=== PATIENT | female | born 1930 | race Caucasian/White ===

== ENCOUNTER 2019-08-13 19:07 | Inpatient (IN) | payer MEDICARE, OTHER ==
[~2019-08-13] VITALS: Ht 167.6 cm; Wt 75.5 kg
--- OUTSIDE RECORDS SUMMARY | ~2019-08-13 | XMS | Clinical Summary ---
Demographics + + + | Address | [address] | | | [place] [address] | + + + | Home Phone | | + + + | Preferred Language | Unknown | + + + | Marital Status | | + + + | Rastafarian Affiliation | Unknown | + + + | Race | Unknown | + + + | Ethnic Group | Unknown | + + + Author + + + | Author | [facility] (Historical as of | | | 05-31-19) | + + + | Organization | [facility] (Historical as of | | | 05-31-19) | + + + | Address | Unknown | + + + | Phone | Unavailable | + + + Support + + +---------+ + | Name | Relationship | Address | Phone | + + +---------+ + | Page Raymond | ECON | Unknown | | + + +---------+ + Care Team Providers + +------+ + | Care Natural Gas Engineer Name | Role | Phone | + +------+ + | Ollie Catalan MD | PP | | + +------+ + Allergies + + + + + + | Active Allergy | Reactions | Severity | Noted | Comments | | | | | Date | | + + + + + + | Rosuvastatin | Shortness of Breath | High | 05/08/20 | Think its the | | | | | 14 | reason for the afib | + + + + + + | Promethazine | Other (See Comments) | Medium | 05/08/20 | Stroke like | | | | | 14 | behavior | + + + + + + | Simvastatin | Shortness of Breath | High | 05/08/20 | | | | | | 14 | | + + + + + + Current Medications + + +-------+---------+------+------+-------+ | Prescription | Sig. | Disp. | Refills | Star | End | Statu | | | | | | t | Date | s | | | | | | Date | | | + + +-------+---------+------+------+-------+ | spironolactone | Take 25 mg by mouth | | | | | Activ | | (ALDACTONE) 25 MG | 2 (two) times daily. | | | | | e | | tablet | | | | | | | + + +-------+---------+------+------+-------+ | diltiazem (DILACOR | Take 240 mg by mouth | | | | | Activ | | XR) 240 MG 24 hr | daily. | | | | | e | | capsule | | | | | | | + + +-------+---------+------+------+-------+ | potassium chloride | Take 20 mEq by mouth | | | | | Activ | | SA (ALBERTO BANKS) | daily. | | | | | e | | 20 MEQ tablet | | | | | | | + + +-------+---------+------+------+-------+ | levothyroxine | Take 100 mcg by | | | | | Activ | | (SYNTHROID) 100 MCG | mouth every morning | | | | | e | | tablet | before breakfast. | | | | | | | | Except none on | | | | | | | | Sunday | | | | | | + + +-------+---------+------+------+-------+ | furosemide (LASIX) | Take 40 mg by mouth | | | | | Activ | | 20 MG tablet | 2 (two) times daily. | | | | | e | + + +-------+---------+------+------+-------+ | atenolol | Take 50 mg by mouth | | | | | Activ | | (TENORMIN) 50 MG | daily. | | | | | e | | tablet | | | | | | | + + +-------+---------+------+------+-------+ | rivaroxaban | Take 20 mg by mouth | | | | | Activ | | (XARELTO) 20 MG | daily with dinner. | | | | | e | | tablet | | | | | | | + + +-------+---------+------+------+-------+ Active Problems + + + | Problem | Noted Date | + + + | Atrial fibrillation (HCC) | | + + + | Hypertension | | + + + | Hyperlipidemia | | + + + Family History + + +------+ + | Medical History | Relation | Name | Comments | + + +------+ + | CVA | Mother | | | + + +------+ + | Heart attack | Paternal | | | | | Grandfath | | | | | er | | | + + +------+ + | Uterine cancer | Sister | | | + + +------+ + + +------+ + + | Relation | Name | Status | Comments | + +------+ + + | Brother | | Alive | | + +------+ + + | Father | | | | | | | (Age | | | | | 60) | | + +------+ + + | Mother | | | | | | | (Age | | | | | 86) | | + +------+ + + | Paternal Grandfather | | | | | | | (Age | | | | | 79) | | + +------+ + + | Sister | | | | | | | (Age | | | | | 80) | | + +------+ + + | Sister | | Alive | | + +------+ + + | Sister | | Alive | | + +------+ + + | Sister | | | | + +------+ + + Social History + +-------+ +--------+------+ | Tobacco Use | Types | Packs/Day | Years | Date | | | | | Used | | + +-------+ +--------+------+ | Never Smoker | | | | | + +-------+ +--------+------+ + +---+---+---+ | Smokeless Tobacco: | | | | | Never Used | | | | + +---+---+---+ + + +---------+ + | Alcohol Use | Drinks/We | oz/Week | Comments | | | ek | | | + + +---------+ + | No | | | | + + +---------+ + + + + | Sex Assigned at | Date Recorded | | | | + + + | Not on file | | + + + Last Filed Vital Signs + + + + | Vital Sign | Reading | Time Taken | + + + + | Blood Pressure | 100/58 | 05/08/2014 10:34 AM PDT | + + + + | Pulse | 62 | 05/08/2014 10:31 AM PDT | + + + + | Temperature | - | - | + + + + | Respiratory Rate | 16 | 05/08/2014 10:31 AM PDT | + + + + | Oxygen Saturation | 96% | 05/08/2014 10:31 AM PDT | + + + + | Inhaled Oxygen | - | - | | Concentration | | | + + + + | Weight | 73 kg (161 lb) | 05/08/2014 10:31 AM PDT | + + + + | Height | 170.2 cm (5' 7") | 05/08/2014 10:31 AM PDT | + + + + | Body Mass Index | 25.22 | 05/08/2014 10:31 AM PDT | + + + + Plan of Treatment + + + + + | Health Maintenance | Due Date | Last Done | Comments | + + + + + | Vaccine: | | | | | Dtap/Tdap/Td (1 - | 9 | | | | Tdap) | | | | + + + + + | Vaccine: Zoster (1 | | | | | of 2) | 0 | | | + + + + + | DEXA SCAN SCREENING | | | | | | 5 | | | + + + + + | Vaccine: | | | | | Pneumococcal 65+ | 5 | | | | Low/Medium Risk (1 | | | | | of 2 - PCV13) | | | | + + + + + | Vaccine: Influenza | | | | | (#1) | 9 | | | + + + + + Results Not on filefrom Last 3 Months Insurance + +--------+ +------+-------+ + | Payer | Benefi | Subscriber | Type | Phone | Address | | | t Plan | ID | | | | | | / | | | | | | | Group | | | | | + +--------+ +------+-------+ + | MEDICARE | MEDICA | [id number] | | | [address] | | | RE | | | | [place] [phone] | | | IP-OP | | | | | + +--------+ +------+-------+ + | COMMERCIAL OTHER | COMMER | [id number] | | | | | | CIAL | | | | | | | GENERI | | | | | | | C PLAN | | | | | + +--------+ +------+-------+ + + +--------+ +--------+ + + | Guarantor Name | Accoun | Relation to | Date | Phone | Billing Address | | | t Type | Patient | of | | | | | | | | | | + +--------+ +--------+ + + | CATHY CAMARA | Person | Self | [birth year] Home: | [id number] | | | al/Fam | | 1930 | [phone] | [address] | | | [address] | | | [phone] | [place] [address] | + +--------+ +--------+ + +
--- OUTSIDE RECORDS SUMMARY | ~2019-08-13 | XMS | Clinical Summary ---
Demographics + + + | Address | [address] | | | [place] [address] | + + + | Home Phone | | + + + | Preferred Language | Unknown | + + + | Marital Status | | + + + | Anabaptist Affiliation | 1041 | + + + | Race | Unknown | + + + | Ethnic Group | Unknown | + + + Author + + + | Author | [facility] | | | and [place] | + + + | Organization | [facility] | | | and [place] | + + + | Address | Unknown | + + + | Phone | Unavailable | + + + Support + + + + + | Name | Relationship | Address | Phone | + + + + + | SegundoBrianna Yaritza | ECON | [address] | | | | | [place] | | | | | [place] | | | | | [phone] | | + + + + + | Prabha Escobedo | ECON | Unknown | | | | | Unknown | | + + + + + Care Team Providers + +------+ + | Care Clay Maker Name | Role | Phone | + +------+ + | Toney Catalan MD | PCP | | + +------+ + Allergies Not on File Medications Not on file Active Problems Not on file Family History + + +------+ + | Medical History | Relation | Name | Comments | + + +------+ + | Other (see comment) | Mother | | CVA | + + +------+ + | Heart [...] + | Mother | | | | + +------+ + + | Paternal Grandfather | | | | | | | (Age | | | | | 79) | | + +------+ + + | Paternal Grandfather | | | | + +------+ + + | [...] | | | + +-------+ +--------+------+ + + + | Sex Assigned at | Date Recorded | | | | + + + | Not on file | | + + + + + + + | Job Start Date | Occupation | Industry | + + + + | Not on file | Not on file | Not on file | + + + + + + + + | Travel History | Travel Start | Travel End | + + + + + + | No recent travel history available. | + + Last Filed Vital Signs Not on file Plan of Treatment + + + + [...] filefrom Last 3 Months Insurance + +--------+ +--------+ +---------+--------+ | Payer | Benefi | Subscriber | Effect | Phone | Address | Type | | | t Plan | ID | anna marie | | | | | | / | | Dates | | | | | | Group | | | | | | + +--------+ +--------+ +---------+--------+ | MEDICARE | MEDICA | [id number] | | [phone] | | Medica | | | RE | | [phone]-Pr | 5 | | re | | | PART A | | esent | | | | | | AND B | | | | | | + +--------+ +--------+ +---------+--------+ | CIGNA | CIGNA | [id number] | | [phone] | | Indemn | | | MDCR | | 012-Pr | 1 | | ity | | | SUPPLE | | esent | | | | | | MENT | | | | | | | | SOLUTI | | | | | | | | ONS | | | | | | + +--------+ +--------+ +---------+--------+ + +--------+ +--------+ + + | Guarantor Name | Accoun | Relation to | Date | Phone | Billing Address | | | t Type | Patient | of | | | | | | | | | | + +--------+ +--------+ + + | Doris Camara | Person | Self | [birth year] | [address] | | | al/Fam | | 1930 | [phone] | [address] | | | [place] | | | [address] (Home) | [place] [address] | + +--------+ +--------+ + +"
--- OUTSIDE RECORDS SUMMARY | ~2019-08-13 | XMS | Clinical Summary ---
Demographics + + + | Address | [address] | | | [place] [address] | + + + | Home Phone | | + + + | Preferred Language | Unknown | + + + | Marital Status | | + + + | Anabaptism Affiliation | Unknown | + + + | Race | Unknown | + + + | Ethnic Group | Unknown | + + + Author + + + | Author | [facility] (Historical as of | | | 05-31-19) | + + + | Organization | [facility] (Historical as of | | | 05-31-19) [...] Team Providers + +------+ + | Care Briquette Operator Name | Role | Phone | + [...] +------+-------+ + | MEDICARE | MEDICA | [id number] | | | [address] | | | RE | | | | [place] [id number] | | | IP-OP | | | | | + +--------+ +------+-------+ + | COMMERCIAL OTHER | COMMER | [id number] | | | | | | CIAL [...] | Self | [birth year] | Home: | [address] | | | al/Fam | | 1930 | [phone] | [address] | | | [address] | | | [phone] | [place] [address] | + +--------+ +--------+ + +
--- OUTSIDE RECORDS SUMMARY | ~2019-08-13 | XMS | Clinical Summary ---
Demographics + + + | Address | [address] | | | [place] [address] | + + + | Home Phone | | + + + | Preferred Language | Unknown | + + + | Marital Status | | + + + | Baptist Affiliation | 1041 | + + + | Race | Unknown | + + + | Ethnic Group | Unknown | + + + Author + + + | Author | [facility] | | | and [place] | + + + | Organization | [facility] | | | and [place] | + + + | Address | Unknown | + + + | Phone | Unavailable | + + + Support + + + + + | Name | Relationship | Address | Phone | + + + + + | SegundoBrianna Yaritza | ECON | [address] | | | | | [place] | | | | | [place] | | | | | [address] | | + + + + + | Prabha Escobedo | ECON | Unknown | | | | | Unknown | | + + + + + Care Team Providers + +------+ + | Care Fuel Technician Name | Role | Phone | + [...] +--------+ +---------+--------+ | MEDICARE | MEDICA | [id number] | | [phone] | | Medica | | | RE | | 995-Pr | 5 | | re | | | PART A | | esent | | | | | | AND B | | | | | | + +--------+ +--------+ +---------+--------+ | CIGNA | CIGNA | [id number] | | [phone] | | Indemn | [...] Person | Self | [birth year] | | [address] | | | al/Fam | | 1930 | [phone] | [address] | | | [place] | | | [address] (Home) | [place] [address] | + +--------+ +--------+ + +"
--- OUTSIDE RECORDS SUMMARY | ~2019-08-13 | XMS | Clinical Summary ---
Demographics + + + | Address | [address] | | | [place] [address] | + + + | Home Phone | | + + + | Preferred Language | Unknown | + + + | Marital Status | | + + + | Mandaeism Affiliation | Unknown | + + + | Race | Unknown | + + + | Ethnic Group | Unknown | + + + Author + + + | Author | [facility] (Historical as of | | | 05-31-19) | + + + | Organization | [facility] (Historical as of | | | 05-31-19) [...] Team Providers + +------+ + | Care Machine Welder Name | Role | Phone | + [...] +------+-------+ + | MEDICARE | MEDICA | [id number] | | | [address] | | | RE | | | | [place] [id number] | | | IP-OP | | | | | + +--------+ +------+-------+ + | COMMERCIAL OTHER | COMMER | [id number] | | | | | | CIAL [...] | Self | [birth year] | Home: | [address] | | | al/Fam | | 1930 | [phone] | [address] | | | [address] | | | [phone] | [place] [address] | + +--------+ +--------+ + +
--- OUTSIDE RECORDS SUMMARY | ~2019-08-13 | XMS | Clinical Summary ---
Demographics + + + | Address | [address] | | | [place] [address] | + + + | Home Phone | | + + + | Preferred Language | Unknown | + + + | Marital Status | | + + + | Druze Affiliation | 1041 | + + + | Race | Unknown | + + + | Ethnic Group | Unknown | + + + Author + + + | Author | [facility] | | | and [place] | + + + | Organization | [facility] | | | and [place] | + + + | Address | Unknown | + + + | Phone | Unavailable | + + + Support + + + + + | Name | Relationship | Address | Phone | + + + + + | SegundoBrianna aYritza | ECON | [address] | | | | | [place] | | | | | [place] | | | | | [address] | | + + + + + | Prabha Escobedo | ECON | Unknown | | | | | Unknown | | + + + + + Care Team Providers + +------+ + | Care Escort Car Driver Name | Role | Phone | + [...] +--------+ +---------+--------+ | MEDICARE | MEDICA | [id number] | | [phone] | | Medica | | | RE | | [phone]-Pr | 5 | | re | | | PART A | | esent | | | | | | AND B | | | | | | + +--------+ +--------+ +---------+--------+ | CIGNA | CIGNA | [id number] | | [phone] | | Indemn | [...] Person | Self | [birth year] | | [address] | | | al/Fam | | 1930 | [phone] | [address] | | | [place] | | | [address] (Home) | [place] [address] | + +--------+ +--------+ + +"
[~2019-08-13 19:07] MED LIST: ALDACTONE25 MG PO; ASPIRIN EC81 MG PO; ATENOLOL50 MG PO; CARDIZEM CD240 MG PO; CENTRUM SILVER1 EAC1 PO; CIPRO500 MG PO; CRESTOR10 MG PO; ESTER-C 1,0001 EACH PO; FUROSEMIDE20 MG PO; HYDREA500 MG PO; HYDROXYUREA500 MG PO; JAKAFI10 MG PO; LEVOTHYROXINE100 MCG PO; OMEGA 3 1,0001 EACH PO; OS-CAL 500+D C1 EAC1 PO; VITAMIN B-121500 MCG PO; VITAMIN D400 UNI1 PO; XARELTO15 MG PO
[2019-08-13] MEDS ORDERED: ALDACTONE25 MG PO (19:12)
--- NOTE | 2019-08-13 22:45 | NUR ---
PATIENT ADMISSION COMPLETED. PATIENT ORIENTED TO ROOM, FLOOR AND CALL LIGHT. IV INFUSING PER ORDER. PATIENT DENIES ANY COMMENTS, QUESTIONS, OR CONCERNS. NO NEEDS NOTED. DAUGHTER IS PRESENT IN THE ROOM. PATIENTS DAUGHTER DENIES ANY QUESTIONS. CHRISTINE KHANNA RN PRESENT IN THE ROOM.
--- NOTE | 2019-08-13 23:22 | NUR ---
PATIENT TUCKED IN AND ADMITTED, LR BOLUS IS RUNNING, IV SITE LOOKS GOOD, LUNGS ARE REALLY JUNKY, BUT PATIENT IS NOT SHORT OF BREATH. PATIENT RESTING QUIETLY AT THIS TIME, EYES CLOSED AND CALL LIGHT IN REACH.
--- NOTE | 2019-08-14 01:14 | NUR ---
PATIENT RESTING IN HIGH FOWLERS POSITION, EYES CLOSED, RESPIRATIONS REGULAR AND EVEN, CALL LIGHT IN REACH.
--- NOTE | 2019-08-14 01:40 | NUR ---
PATIENT HAS BEEN RESTING QUIETLY IN NO DISTRESS, DENIES SOB, VITALS ARE WITHIN GUIDELINES. PATIENT TRYING TO GO BACK TO SLEEP AFTER VS AND ASSESSMENT. LUNG SOUNDS ARE COARSE THROUGHOUT. CALL LIGHT IN REACH.
--- NOTE | 2019-08-14 03:36 | NUR ---
PATIENT INCONTINENT IN BED. JANINE SMITH HELPING PATIENT. PATIENT HAS ATTENDS ON NOW AND FINISHED TOILETING IN THE BATHROOM AND BACK TO BED AFTER IT WAS CHANGED. CALL LIGHT IN REACH.
--- NOTE | 2019-08-14 05:46 | NUR ---
PATIENT HAS RESTED MOST OF THE NIGHT, SATS IN THE LOW 90'S ON RA, HAS NO C/O SOB, BUT LUNGS HAVE REMAINED VERY COARSE THROUGHOUT. PATIENT ALERT AND ORIENTED AND VS HAVE BEEN STABLE. PATIENT SAYS SHE IS FEELING A LITTLE BETTER. PATIENT HAD ONE LARGE INCONTINENT EPISODE AND BED CHANGE WAS NEEDED AND PATIENT WALKED INTO THE BATHROOM TO FINISH URINATING WITH 1PA AND FWW. IV INFUSING AT 75MLS AN HOUR. PATIENT TOLERATED ANTIBIOTICS WELL AND IS TAKING PO FLUIDS WELL. PATIENT GETTING SOME MORE SLEEP. CALL LIGHT IS IN REACH.
--- NOTE | 2019-08-14 07:20 | NUR ---
PATIENT SLEEPING IN BE ON RA. REPORT RECEIVED. ORDERS ACKNOWLEDGED. D5LR RUNNING AT 75 MLS/HR.
--- NOTE | 2019-08-14 08:31 | NUR ---
DAUGHTER TANISHA CALLED FOR UPDATE ON PT NIGHT. GAVE INFORMATION ON HOW PT NIGHT WAS. DAUGHTER PLANS TO BE HERE IN HOUR TO VISIT.
--- NOTE | 2019-08-14 09:30 | NUR ---
PATIENT AMBULATED TO TOILET WITH 1 PA AND FWW, VOIDING QS. AMBULATED BACK TO CHAIR, D5LR RUNNING AT 75 MLS/HR. RT IN ROOM PROVIDING NEB TX. IV ABX HUNG AT 200 MLS/HR. AM MEDICATIONS GIVEN, TOLERATED WELL. BREAKFAST DELIVERED. ASSESSMENT COMPLETE, COARSE LUNG SOUNDS THROUGHOUT ALL LOBES. NONPRODUCTIVE COUGH. NO FURTHER NEEDS AT THIS TIME, CALL LIGHT WITHIN REACH.
[2019-08-14] MEDS ORDERED: ATENOLOL25 MG PO (12:10)
[2019-08-14] MEDS ORDERED: CARTIA XT240 MG PO (12:11)
--- NOTE | 2019-08-14 12:46 | NUR ---
CT ARRIVED TO ROOM TO TAKE PATIENT TO IMAGING. PATIENT ONE PA ASSIST TO BEDSIDE COMMODE. VOIDED 300 MLS. PATIENT TRANSFERRED FROM COMMODE TO WHEELCHAIR WITH 2PA. PATIENT LEAVES UNIT TO IMAGING.
--- NOTE | 2019-08-14 13:30 | NUR ---
PATIENT RESTING IN BED. VITAL SIGNS AND I&O DONE. LOW SYSTOLIC BLOOD PRESSURE. RN NOTIFIED. PATIENT'S LUNCH ORDERED. CALL LIGHT WITHIN REACH. NO OTHER NEEDS AT THIS TIME
--- NOTE | 2019-08-14 13:50 | NUR ---
Spoke with Doris. She states she resides alone in a two storie house with children nearby. Use DME of walker, raised toilet seat with a commode over the toilet. House has steps with rails. Plans to return home with assistance from family when feeling better.
--- NOTE | 2019-08-14 14:15 | NUR ---
PATIENT SITTING IN CHAIR WATCHING TV WITH DAUGHTER IN ROOM. IV ABX HUNG AT 200 MLS/HR. 100% OF LUNCH EATEN, ACTIVE BOWEL TONES. BP OF 112/56 AND PULSE OF 93. DENIES FURTHER NEEDS, CALL LIGHT WITHIN REACH.
--- NOTE | 2019-08-14 15:20 | NUR ---
PATIENT SITTING UP IN CHAIR WATCHING TV. IV ABX FINISHED INFUSING, PATIENT IS SALINE LOCKED. PLAN FOR PATIENT TO SHOWER THIS AFTERNOON. NO FURTHER NEEDS AT THIS TIME, CALL LIGHT WITHIN REACH.
--- NOTE | 2019-08-14 16:10 | NUR ---
MED REC COMPLETE
--- NOTE | 2019-08-14 16:14 | NUR ---
PATIENT SITTING UP IN CHAIR. PATIENT GOES TO USE BATHROOM. PATIENT USES WALKER. PATIENT TAKES A SHOWER. ONE PERSON ASSISTING. PATIENT USING A CLEAN GOWN AND ADULT PULL UP. PATIENT BACKS TO BED. WARM BLANKET PROVIDED. CALL LIGHT WITHIN REACH. NO OTHER NEEDS AT THIS TIME
--- NOTE | 2019-08-14 17:00 | NUR ---
PATIENT LAYING IN BED WATCHING TV WITH FAMILY IN ROOM. PO XARALTO GIVEN, 2ND RN CHECK DONE. ASSESSMENT COMPLETE, VITAL SIGNS TAKEN. WATER REFRESHED. NO FURTHER NEEDS AT THIS TIME, CALL LIGHT WITHIN REACH.
--- NOTE | 2019-08-14 17:25 | NUR ---
PATIENT RESTING IN BED. FAMILY AND RN IN ROOM. VITAL SIGNS AND I&O DONE. LOW DYASTOLIC BLOOD PRESSURE. RN NOTIFIED. CALL LIGHT WITHIN REACH. NO OTHER NEEDS AT THIS TIME
--- NOTE | 2019-08-14 20:03 | NUR ---
PATIENT CURRENTLY VISITING WITH FAMILY AND HAS NO NEEDS, CALL LIGHT IN REACH.
--- NOTE | 2019-08-14 20:27 | NUR ---
PATIENT HAS NO PAIN BUT LOW GRADE FEVER AND GIVEN 500MG TYLENOL PO. PATIENT'S DAUGTER JUST WENT HOME. PATIENT ALERT AND ORIENTED. NO OTHER NEEDS. CALL LIGHT IN REACH.
--- NOTE | 2019-08-14 21:30 | NUR ---
PATIENT UP TO THE BATHROOM WITH CHARGE NURSE ELENI, 1PA WITH FWW AND THEN BACK TO BED. NO OTHER NEEDS AT THIS TIME. CALL LIGHT IN REACH.
--- NOTE | 2019-08-14 23:28 | NUR ---
PATIENT STILL AWAKE WATCHING TV. PATIENT'S FEVER IS GONE AND SHE IS HAVING NO PAIN. TEMP 97.8F NOW. PATIENT HAD NO OTHER NEEDS AT TIS TIME. CALL LIGHT IN REACH.
--- NOTE | 2019-08-15 01:11 | NUR ---
PATIENT RESTING ON HER RIGHT SIDE WITH EQUAL AND REGULAR RESPIRATIONS, EYES ARE CLOSED, AND PATIENT APPEARS IN NO DISTRESS. CALL LIGHT IN REACH.
--- NOTE | 2019-08-15 02:00 | NUR ---
PATIENT UP TO THE BATHROOM 1PA WITH FWW, VS STABLE, 2AM MEDS GIVEN, PATIENT BACK IN BED WITH WARM BLANKETS. VOIDED 150MLS. CALL LIGHTIN REACH. PATIENT STILL WITHOUT FEVER.
--- NOTE | 2019-08-15 03:13 | NUR ---
PATIENT RESTING QUIETLY ON HER LEFT SIDE, RESPIRATIONS REGULAR AND EVEN WITH HER EYES CLOSED. NO SOB NOTED. CALL LIGHT IN REACH.
--- NOTE | 2019-08-15 05:16 | NUR ---
PATIENT HAS SLEPT WELL MOST OF THE NIGHT. JUST GOT HER BACK TO BED AFTER HER 3RD TIME UP TO VOID SINCE 10PM. PATIENT REMAINS A LITTLE TACHY AROUND 110-114. ENCOURAGED PATIENT TO DRINK MORE WATER. CALL LIGHT IN REACH, PATIENT STILL DOING BETTER.
--- NOTE | 2019-08-15 07:30 | NUR ---
CALL LIGHT ANSWERED. PATIENT RESTING IN BED. PATIENT GOES TO USE BATHROOM. PATIENT USES WALKER. ONE PERSON ASSISTING. LINENS CHANGED. GOWN CHANGED. PATIENT USING A CLEAN ADULT PULL UP. PATIENT BACKS TO BED. CALL LIGHT WITHIN REACH. NO OTHER NEEDS AT THIS TIME
--- NOTE | 2019-08-15 07:35 | NUR ---
PATIENT SLEEPING IN BED, ROUSES TO VOICE. REPORT RECEIVED, ORDERS ACKNOWLEDGED. PATIENT STATES HER STOMACH IS "UNCOMFORTABLE." DISTENSION NOTED, ACTIVE BOWEL TONES. WILL UPDATE DR. AUGUSTIN AND CONTINUE TO MONITOR. NO FURTHER NEEDS AT THIS TIME, CALL LIGHT WITHIN REACH.
--- NOTE | 2019-08-15 08:04 | NUR ---
PATIENT AMBULATED TO CHAIR WITH 1PA. BREAKFAST DELIVERED. RT IN ROOM FOR NB TX. ASSESSMENT COMPLETE, VITALS TAKEN. NEW LINENS PROVIDED. AM MEDICATIONS GIVEN. PATIENT REPORTS NAUSEA, EMESIS BAG PROVIDED. PATIENT DENIES OFFER FOR ANTIEMETIC MEDICATION. WILL CONTINUE TO MONITOR. CALL LIGHT WITHIN REACH.
--- NOTE | 2019-08-15 09:10 | NUR ---
PATIENT SITTING IN CHAIR EATING BREAKFAST. REPORTS "UNCOMFORTABLE" FEELING IN ABDOMEN THAT IS SPREADING AROUND HER ABDOMEN. STATES IT FEELS "LIKE WHEN I'VE HAD A UTI IN THE PAST." VITAL SIGNS STABLE. WILL CONTINUE TO MONITOR. CALL LIGHT WITHIN REACH.
--- NOTE | 2019-08-15 09:22 | NUR ---
PATIENT SITTING UP IN CHAIR. VITAL SIGNS AND I&O DONE. CALL LIGHT WITHIN REACH. NO OTHER NEEDS AT THIS TIME
--- NOTE | 2019-08-15 10:45 | NUR ---
DR. AUGUSTIN NOTIFIED OF ABDOMINAL DISTENSION. PATIENT REPORTING FLANK PAIN AND NAUSEA. PATIENT ATE 20% OF BREAKFAST, REPORTS DECREASED APPETITE. VITALS TAKEN, PATIENT IS AFEBRILE.
--- NOTE | 2019-08-15 10:51 | NUR ---
PT CALLED REPORTING NAUSEA. 4MG ZOFRAN IV ADMINISTERED. EMISIS BAG PROVIDED. NO EMISIS. [facility] IN REACH.
--- NOTE | 2019-08-15 11:45 | NUR ---
PATIENT CONTINUES TO REPORT NAUSEA AND ABDOMINAL PAIN OF 4/10. PATIENTS ABDOMEN IS FIRM AND DISTENDED. DR. AUGUSTIN NOTIFIED, WILL ROUND ON PATIENT.
--- NOTE | 2019-08-15 13:54 | NUR ---
PATIENT RESTING IN BED. DAUGHTERS IN ROOM. VITAL SIGNS AND I&O DONE. PATIENT REFUSED TO ORDER LUNCH, SHE DOES NOT FEEL GOOD AND ASKS FOR MEDICINE FOR HEARTBURN. RN NOTIFIED. CALL LIGHT WITHIN REACH. NO OTHER NEEDS AT THIS TIME
--- NOTE | 2019-08-15 14:33 | NUR ---
XRAY IN ROOM WITH PATIENT. IV ABX HUNG AT 200 MLS/HR. FAMILY IN ROOM WITH PATIENT. PRN MEDICATION GIVEN FOR REPORTED HEARTBURN.
--- NOTE | 2019-08-15 15:51 | NUR ---
In to speak with pt and daughter, Brianna. Discussed when pt has improved plan to safely dc to home. Discussed PT/OT at home with HH. Daughter declines this as she and family feel pt has been failing and they need to make a decisions for her future. Daughter encouraged to speak with Dr. Quinteros.
--- NOTE | 2019-08-15 16:53 | NUR ---
PATIENT RESTING IN BED. DAUGHTER IN ROOM. VITAL SIGNS AND I&O DONE. CALL LIGHT WITHIN REACH. NO OTHER NEEDS AT THIS TIME
--- NOTE | 2019-08-15 17:32 | NUR ---
PATIENT SITTING UP IN BED WATCHING TV WITH FAMILY IN ROOM. LIDOCAINE ADMINISTERED INTO LEFT NOSTRIL. WILL RETURN IN THIRTY MINUTES TO INSERT NG TUBE.
--- NOTE | 2019-08-15 18:24 | NUR ---
NG TUBE PLACED PER PROTOCOL. 400 MLS OF DARK BROWN OUTPUT. XRAY IN ROOM VERIFYING PLACEMENT.
--- NOTE | 2019-08-15 18:31 | NUR ---
NG TUBE PLACED. NPO. [id number] AT 100 MLS/HR. ABDOMEN DISTENDED. STANDBY ASSIST, FWW. LIWS. TYLENOL FOR PAIN, REGLAN/ZOFRAN FOR NAUSEA.
--- NOTE | 2019-08-15 18:59 | NUR ---
TELE 9 PLACED PER ORDER.
--- NOTE | 2019-08-15 19:16 | NUR ---
NURSE ASKED ME TO CHECK ON PATIENT. PATIENT WAS INCONTIENT SO CHANGED HER ATTEND AND GOWN.
--- NOTE | 2019-08-15 21:08 | NUR ---
DR. LANG TO ROOM. DISCUSSED POC, CONTINUE BOWEL REST WITH NG IN PLACE. PATIENT AWAKE AND ALERT ANSWERING QUESTIONS APROPRIATLEY. DAUGHTER AT BEDSIDE. CONTINUE TO MONITOR AND SEE IF BOWEL BLOCKAGE RESOLVES ITSELF WITH REST.
--- NOTE | 2019-08-15 22:12 | NUR ---
PAUSES NOTED ON TELEMETRY. NOTIFIED AND UPDATED, NO NEW ORDERS. PHONE CALL TO MED-SURG NURSE CARLOS EDUARDO TO NOTIFY.
--- NOTE | 2019-08-16 00:36 | NUR ---
PATIENT RESTING, BREATHING EASY, EYES CLOSED. IV FLUIDS INFUSING. TELE AFIB WITH HR 77-89. APPEARS TO BE NO OTHER NEEDS AT THIS TIME.
--- NOTE | 2019-08-16 02:11 | NUR ---
VITALS AND I&OS DONE AND CHARTED. WITH THE HELP OF DEVANTE RAY WE CHANGED PT'S ATTEND INCONTINENT OF URINE. CHANGED HER GOWN WELL DUE TO A BIT OF URINE ON IT. BEDSIDE TABLE AND CALL LIGHT IN REACH.
--- NOTE | 2019-08-16 02:30 | NUR ---
PATIENT LOW GRADE TEMP 99.1, ENCOURAGED COUGH AND DEEP BREATHING. USING IS AND ACAPELLA, LARGE AMOUNT OF THICK SPUTUM EXPIRATED. CALL TO RT TO ASSESS FOR BREATHING TREATMENT, AUDIBLE EXPIRATORY WHEEZING.
--- NOTE | 2019-08-16 03:04 | NUR ---
PER PT REQUEST I CAME IN TO MOVE HER BEDSIDE TABLE. SHE NEEDS NOTHING MORE AT THIS TIME.
--- NOTE | 2019-08-16 03:40 | NUR ---
PATIENT RESTING WITH EYES CLOSED. RECIEVED BREATHING TREATMENT FROM RT, CONTINUES TO HAVE EXPIRATORY WHEEZES. NOTED PATIENT HAD COPIOUS AMONTS OF THICK EXUDATE AFTER BREATHING TREATMENT AND USING IS.
--- NOTE | 2019-08-16 06:16 | EKG ---
[facility] [address] [facility] [place] [address] Signed Atrial fibrillation Nonspecific ST and T wave abnormality Abnormal ECG When compared with ECG of 29-AUG-2016 08:47, Nonspecific T wave abnormality now evident in Lateral leads Confirmed by YOLANDA AUGUSTIN MD ([id number]) on 08/16/2019 6:15:44 AM Electronically Signed By: YOLANDA AUGUSTIN MD 08/16/19 0616 PATIENT NAME: CATHY BUTT Electrocardiogram DATE OF : [birth year] PHYSICIAN: YOLANDA AUGUSTIN MD REPORT #: [id number] REPORT IS CONFIDENTIAL AND NOT TO BE RELEASED WITHOUT AUTHORIZATION
--- NOTE | 2019-08-16 06:45 | NUR ---
PATIENT UP TO BATHROOM, NOTED BOWEL MOVEMENT. THICK PASTY CONSISTENCY. STOOD STRONG FROM BED AND AMBULATED TO BATHROOM WITH WALKER STEADY ON FEET. ATTEMPTED TO COLLECT URINE SAMPLE, BUT CONTAMINATED WITH GREEN BILE STOOL. PATIENT REPORTS WHEN SHE COUGHS SHE CAN FEEL THE STOOL LEAKING INTO BRIEF. PROVIDED PATIENT WITH SPONGE BATH AND FRESH GOWN. THEN TO RECLINER IN ROOM, WALKING FIRST TO ENTRANCE OF ROOM AND THEN BACK TO CHAIR. PATIENT HOOKED BACK TO INTERMITTENT SUCTION. DAUGHTER AT BEDSIDE. PROVIDED BEDSIDE REPORT TO TONIA MEHTA.
--- NOTE | 2019-08-16 07:30 | NUR ---
PATIENT SITTING UP IN CHAIR. DAUGHTER IN ROOM. LINENS CHANGED. CALL LIGHT WITHIN REACH. NO OTHER NEEDS AT THIS TIME
--- NOTE | 2019-08-16 07:33 | NUR ---
BEDSIDE REPORT RECEIVED PT UP IN CHAIR, DAUGHTER IS PRESENT AND INTERACTIVE
--- NOTE | 2019-08-16 07:53 | NUR ---
CHANGED CANISTER TO SUCTION. CHARTED I&O. PATIENT UP IN RECLINER, RT PROVIDING BREATHING TREATMENT.
--- NOTE | 2019-08-16 08:38 | NUR ---
PT REPORTS SHE IS PASSING STOOL EACH TIME SHE COUGHS AND IS "A BIG MESS" INFORMATION TECHNOLOGY DATA ANALYST PRESENT TO ASSIST WITH SHOWER. PT DENIES PAIN C/O THROAT DISCOMFORT ONLY, DUE TO NG TUBE, DENIES OFFER OF LOZENGES STATES ICE IS HELPING. DAUGHTER REMAINS IN THE ROOM AT THIS TIME.
--- NOTE | 2019-08-16 09:19 | NUR ---
PATIENT SITTING UP IN CHAIR. PATIENT GOES TO USE BATHROOM. PATIENT USES WALKER. PATIENT TAKES A SHOWER. ONE PERSON ASSISTING. PATIENT USING A CLEAN GOWN AND ADULT PULL UP. PATIENT BACKS TO CHAIR. WARM BLANKET PROVIDED. VITAL SIGNS AND I&O DONE. CALL LIGHT WITHIN REACH. NO OTHER NEEDS AT THIS TIME
--- NOTE | 2019-08-16 09:52 | NUR ---
SHOWER WELL TOLERATED PT RETURNS TO RECLINER DAUGHTER PRESENT IN ROOM. DR AUGUSTIN IN TO SEE PT PLAN OF CARE DISCUSSED. NG TO LIS IV INFUSING
--- NOTE | 2019-08-16 13:17 | CONS ---
[facility] [address] [place] [place] [address] Signed DATE OF CONSULTATION: 08/15/2019 CONSULTING PHYSICIAN: Hbuert Lang MD REQUESTING PHYSICIAN: Yolanda Augustin MD PROBLEMS: New onset small bowel obstruction, recent right-sided pneumonia. HISTORY OF PRESENT ILLNESS: This elderly 89-year-old white woman is on the service of Dr. Augustin and was admitted by Dr. Augustin on August 13 with findings consistent with right-sided pneumonia. She had complained of a cough going on for the preceding week. She had a sore throat and rhinorrhea 2 weeks previously treated with [id number] medications and her upper respiratory symptoms at that time resolved. She subsequently developed a cough started with shortness of breath and wheezing and feeling weak. 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 Faustin. She was treated with antibiotics and was seemed to be doing better until today where she had significant nausea without associated vomiting, abdominal pain, and symptoms highly suggestive of bowel obstruction. A plain abdominal x-ray after nasogastric tube placement was undertaken, showed good position of the nasogastric tube, and immediate relief of distention symptoms of nausea and so on. A CT scan was performed as well, which showed her to have an underlying malrotation issue with all her small bowel on the right side of the abdomen. Comparison of the CT scan in 2015, at which time she had a small bowel obstruction confirmed this finding. She was noted to have a right small pleural effusion and patchy density in the right lower lobe consistent with pneumonia as well. Stomach was considered to be extremely distended with fluid on the CT scan and there were mildly distended loops of small bowel with air-fluid levels on the right side interspersed with small bowel loops without such findings. 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 At present with nasogastric tube decompression, she is feeling much better. She does not have severe pain. She certainly had it earlier in the day. She denies any hematemesis or blood per rectum. SOCIAL HISTORY: She lives in the [facility]. She is accompanied by her daughter. Electronically Signed By: HUBERT LANG MD 08/16/19 1317 PATIENT NAME: CATHY BUTT CONSULTATION DATE OF : [birth year] REPORT #: [id number] PHYSICIAN: HUBERT LANG MD PCP: YOLANDA AUGUSTIN MD REPORT IS CONFIDENTIAL AND NOT TO BE RELEASED WITHOUT AUTHORIZATION [facility] [address] [place] [id number] Signed REVIEW OF SYSTEMS: She denies any shortness of breath or chest pain at this time. Extremities are without pain she says. She did previously have abdominal pain, no more at this time Dominantly, but certainly still some bloated feeling just with nasogastric tube, which is draining bilious fluid. LABORATORY DATA: Most recent lab studies were from yesterday with white count of 9.1 and hematocrit 31.9 with platelet count of 311,000. Her Chem profile was essentially normal. Her creatinine was 1.08, glucose 160, and albumin 4.1. Urinalysis at admission was considered reasonably normal, rbc's 5, white cells 5, squamous cells 1, bacteria 1+. Influenza studies and Legionella and Strep pneumonia antigen all obtained. The influenza type A and B are considered negative. PHYSICAL EXAMINATION: GENERAL: She does not look systemically toxic and she is alert and oriented. Her nasogastric tube is draining clear bilious fluid. Trachea is midline. CHEST: Shows some end-expiratory wheezing, audible even without a stethoscope. Pulse is irregularly irregular. ABDOMEN: Obese, but generally soft. I do not detect a focal tenderness. She has no crepitus. EXTREMITIES: Show obesity and mild edema. She moves both upper and lower extremities without too much problem. Most recent lab studies are from yesterday morning. CT scan and abdominal x-rays were all reviewed in detail. ASSESSMENT AND PLAN: The patient appears to have findings consistent with small bowel obstruction. She has a malrotation, which no doubt contributes to this. She has not had abdominal surgery in the past with contribution to adhesion formation or other cause of bowel obstruction. Careful clinical examination as well as close scrutiny of the CT scan shows no sign of hernia. She has appropriately been treated with a nasogastric tube for decompression. It is notable that in 2016, she was admitted to the hospital and underwent conservative management for bowel obstruction under the direction of Dr. Ayon and did not require operation after all. Malrotation was noted at that time as well. She has no evidence of a "swirl sign" to indicate mesenteric volvulus or anything of that sort. She still may require ultimately to have operation to remedy the bowel obstruction problem if it is not promptly resolving. Electronically Signed By: HUBERT LANG MD 08/16/19 1317 PATIENT NAME: CATHY BUTT CONSULTATION DATE OF : [birth year] REPORT #: [id number] PHYSICIAN: HUBERT LANG MD PCP: YOLANDA AUGUSTIN MD REPORT IS CONFIDENTIAL AND NOT TO BE RELEASED WITHOUT AUTHORIZATION [facility] [address] [place], [place] [address] Signed She has been on Xarelto anticoagulant and the coarse antibiotics on the basis of her right lower lobe pneumonia. The pneumonia does not appear to be extremely troublesome based on the CT scan that certainly was the index cause of her admission to the hospital. Whether or not the bowel process in fact is a progenitor to her apparent pneumonia remains of conjecture. At this point, I would withhold anticoagulation as she may require operative management in the next 24 hours. IV fluid maintenance and nasogastric tube decompression will be central to her recovery, hopefully not requiring an operative intervention of any sort. Continued IV fluids and IV antibiotics as appropriate will be recommended as well. As regard to DVT prophylaxis, I do not see that she is on heparin or Lovenox nor upon close review of her medical record has she taken her anticoagulant Xarelto since 3:22 p.m. today. We will initiate sequential compression device stockings in the meantime. MD CAMMY Dominguez/SANDRO /[id number] cc: Yolanda Augustin MD Copies: YOLANDA AUGUSTIN MD ~ Electronically Signed By: HUBERT LANG MD 08/16/19 1317 PATIENT NAME: CATHY BUTT CONSULTATION DATE OF : [birth year] REPORT #: [id number] PHYSICIAN: HUBERT LANG MD PCP: YOLANDA AUGUSTIN MD REPORT IS CONFIDENTIAL AND NOT TO BE RELEASED WITHOUT AUTHORIZATION
--- NOTE | 2019-08-16 13:32 | NUR ---
PATIENT RESTING IN BED. RN AND DAUGHTER IN ROOM. PATIENT GOES TO USE BATHROOM. PATIENT USES WALKER. ONE PERSON ASSISTING. GOWN AND ADULT PULL UP CHANGED. PATIENT BACKS TO CHAIR. VITAL SIGNS DONE BY RN. I&O DONE. CALL LIGHT WITHIN REACH. NO OTHER NEEDS AT THIS TIME
--- NOTE | 2019-08-16 13:44 | NUR ---
PT UP TO TOILET AFTER A GOOD SOUND NAP. SHE STATES SHE IS TOO TIRED TO WALK THE ADLER AT THIS TIME SO RETURNS TO RECLINER, DAUGHTER IS PRESENT. DR LANG IN TO SEE HER
--- NOTE | 2019-08-16 17:12 | NUR ---
PT UP AND AMBULATES THE ADLER NOT ABLE TO GO FAR, STATES SHE IS WEAK AND SOB, BUT DOES MAKE AN EFFORT. WORKS WITH P/T THIS SHIFT WELL. PT COOPERATIVE USING TRUMPET AND I/S WHEN ENCOURAGED IS ABLE TO PRODUCE A MODERATE AMOUNT OF SPUTUM.
--- NOTE | 2019-08-16 17:12 | NUR ---
PATIENT RESTING IN BED DAUGHTERS IN ROOM. VITAL SIGNS AND I&O DONE. HIGH TEMP. RN NOTIFIED. CALL LIGHT WITHIN REACH. NO OTHER NEEDS AT THIS TIME
--- NOTE | 2019-08-16 19:52 | NUR ---
asst'd RT with boosting pt up in bed prior to reciving het treatment
--- NOTE | 2019-08-16 20:00 | NUR ---
RECEIVED REPORT AT 1900, FOUND PT IN BED SLEEPING. DAUGHTER IS AT BEDSIDE.
--- NOTE | 2019-08-16 22:00 | NUR ---
HR IN THE 120'S WITH MOST RECENT V/S, TEMP WAS 99.0 F. WILL CONTINUE TO MONITOR. PT TO BE PUT ON 3L OS NC DUE TO O2 SATS IN THE LOW 80'S AT THIS TIME. WAVE FORM IS GOOD AND FINGERS ARE WARM TO TOUCH. PT HAS A LOT OF MUCOUS PRODUCTION WELL. ALL LOBES ARE COARSE WITH INPIRATORY/ EXPIRATORY WHEEZING PRESENT. NG TUBE WAS FLUSHED WITH 40MLS H2O, ABD SOUNDS ARE ABSENT AT THIS TIME. PT HOWEVER DID HAVE SOME BM'S TODAY. PT HAS +1 BILATERAL FOOT/ANKLE EDEMA PRESENT. PT OVERALL IS VERY WEAK.
--- NOTE | 2019-08-16 22:07 | NUR ---
AMBULATED PATIENT TO BATHROOM, BRIEF SATURATED WITH URINE AND STOOL. PATIENT STEADY ON FEET, STANDING STRONG FROM BED. 1 PERSON STBY TO BATHROOM WITH WALKER. EXPIRATORY WHEEZING AUDIBLE, PATIENT DENIES SOB. PROVIDED BEDTIME CARE CHANGED LINEN PER DAUGHTERS REQUEST. PATIENT RESTING ON RIGHT SIDE WITH HOB AT 30 DEGREE ANGLE. CALL LIGHT WITHIN REACH. DAUGHTER LEFT HOME PHONE NUMBER TO BE REACHED AT [phone].
--- NOTE | 2019-08-17 01:36 | NUR ---
PT AT THIS TIME IS SLEEPING. PT REMAINES ON 3L O2 NC. NO NEW CONCERNS NOTED AT THIS TIME.
--- NOTE | 2019-08-17 01:43 | NUR ---
AT THIS TIME ALL LOBES HAVE INSPIRATORY/ EXPIRATORY WHEEZING PRESENT BUT THEY ARE NOT COARSE. ABD SOUNDS AT THIS TIME ARE PRESENT. OTHERWISE THE SECOND ASSESSMENT WAS UNCHANGED. PT IS STILL ON 3L O2 NC. HR ANYWHERE FROM 50'S -120'S.
--- NOTE | 2019-08-17 02:30 | NUR ---
ASST RN TO BOOST PT UP IN BED, ADJ PTs PILLOWS ON HER SIDES FOR PT COMFORT,
--- NOTE | 2019-08-17 02:35 | NUR ---
PT'S ABX FINISHED INFUSING. IV SWITCHED BACK TO IVF. PT IS RESTING WITH EYES CLOSED, RR IS EVEN AND NONLABORED. CALL LIGHT IS CLOSE.
--- NOTE | 2019-08-17 05:58 | NUR ---
AT AROUND 2200 OR SO, PT WAS PUT ON 3L O2 NC DUE TO O2 SATS IN THE LOW 80'S. PT HAD A VERY PRODUCTIVE COUGH THAT JUST WOULD NOT LET UP FOR A WHILE. AT 0530 PT WAS TAKEN OFF O2 AND WAS ABLE TO MAINTAIN O2 SATS >92% ON RA. COUGH THE NIGHT WENT ON DID SUBSIDE SOME. PT HAS REMAINED ABFEBRILE ALL SHIFT SO FAR. AT START OF SHIFT ABD SOUNDS WERE ABSENT, ALL LOBES WERE COARSE WITH INSPIRATORY/ EXPIRATORY WHEEZING PRESENT, +1 BILATERAL FOOT/ANKLE EDEMA WAS NOTED AND OVERALL PT WAS VERY WEAK. WITH SECOND ASSESSMENT, ABD SOUNDS WERE PRESENT, ALL LOBES HAD INSPIRATORY/ EXPIRATORY WHEEZING PRESENT BUT NO COARSNESS WAS NOTED. OTHER PARTS OF THE ASSESSMENT WERE UNCHANGED FROM THE FIRST ONE. PT HAD A SMALL BM THIS AM.
--- NOTE | 2019-08-17 06:08 | NUR ---
WITH THE HELP OF RN SILVA WE DID A COMPLETE BED CHANGE DUE TO INCONTINENCE OF URINE AND STOOL. REPOSITIONED HER IN BED. VITALS AND I&OS DONE AND CHARTED. BEDSIDE TABLE AND CALL LIGHT IN REACH. PT NEEDS NOTHING MORE AT THIS TIME.
--- NOTE | 2019-08-17 07:40 | NUR ---
PT RESTING SUPINE IN BED ALERT AND ORIENTED. PT DENIES NAUSEA, PAIN OR SOB. PT HAS PRODUCTIVE COUGH AND LUNGS ARE COURSE WITH INSPIRATORY AND EXPIRATORY WHEEZING. O2 SAT 88% ON RA, PT WAS TITRATED TO 3LPNC AND NOW SATTING 92%. H2O AND CALL LIGHT IN REACH. PT DENIES FURTHER NEEDS OR CONCERNS. CTM. NG WALL SUCTION CANISTER FULL SO WAS ALSO REPLACED AT THIS TIME.
--- NOTE | 2019-08-17 08:30 | NUR ---
ENTERED PT ROOM. CHECKED SUCTION, FOUFN TO BE OFF. CONNTED SUCTYION TO LOW INTERMITTIENT. GASTRIC SECREATIONS YELLOWISH GREEN. PT C/O PAIN WITH COUGHING, PAIN IS IN UPPER CHEST AND RIGHT EAR. PT STATED IT IS DUE TO THE COUGHING AND THAT IT IS NOT NEW. LUNG SOUNDS COARSE AND WHEEZING, BOWLE TNOE HYPO ACTIVE.
--- NOTE | 2019-08-17 09:09 | NUR ---
EXTRA SMALL BOWLE MOVELEMT LOOKS TO BE DARK GREENISH BROWN. CONSISTANCEY IS MUCUSY AND STICKY. ODOR IS WNL.
--- NOTE | 2019-08-17 09:35 | NUR ---
PATIENT RESTING IN BED. RN IN ROOM. PATIENT GOES TO USE BATHROOM. PATIENT USES WALKER. ONE PERSON ASSISTING. HANDS WASHED.ATTEND CHANGED. PATIENT BACKS TO CHAIR. VITAL SIGNS AND I&O DONE. LOW OXYGEN SATURATION AND HIGH HEART RATE. RN NOTIFIED. WARM BLANKET PROVIDED. CALL LIGHT WITHIN REACH. NO OTHER NEEDS AT THIS TIME
--- NOTE | 2019-08-17 11:04 | NUR ---
PT UP IN CHAIR. COUGHING UP CLEAR SECREATION. COUGH IS VERY MOIST. LOW INTERMITTENT SUCTION APPLIED. AIR PLACED IN BACKFLOW VALVE, AND LYING ABOVE SHOULDER. TUBE HAD YELLOW GASTRIC CONTENTS. PT NOT C/O OF PAIN OR NEAUSEA
--- NOTE | 2019-08-17 11:35 | NUR ---
ASSITED PT WITH DISCONNECTING NG SUCTION AND SL FOR AMBULATION IN HALLWAY. ENCOURAGE AMBULATION MUCH POSSIBLE TO ASSIT GI MOVEMENT AND DEEP BRATHING TO HELP CLEAR LUNGS
--- NOTE | 2019-08-17 11:52 | NUR ---
PT BACK TO BED. LOW INTERMITENT SUCTION CONNECTED. IV RECONNECTED. PT RESTING IN BED
--- NOTE | 2019-08-17 13:10 | NUR ---
PATIENT RESTING IN BED. DAUGHTER IN ROOM. PATIENT DOES NOT FEEL ABLE TO WALK TO THE BATHROOM. ATTEND CHANGED IN BED. TWO PERSON ASSISTING. VITAL SIGNS AND I&O DONE. HIGH HEART RATE AND LOW OXYGEN SATURATION. RN NOTIFIED. CALL LIGHT WITHIN REACH. NO OTHER NEEDS AT THIS TIME
--- NOTE | 2019-08-17 13:39 | NUR ---
RT NOTIFIED FOR CONSULT ABOUT VARIYING O2 SATURATIONS. BEGAN WITH PET CARETAKER REPORTING LOW 02 SAT AT 85 ON RA. PLACED PT ON 3 LNC. O2 SATS MONITORED FOR FLUCUTATIONS. PT RESTING. O2 FLUCUATED FROM 87-98 ON 3 LNC.
--- NOTE | 2019-08-17 15:01 | NUR ---
PT UP AND WALKING TO BATHROOM. PT UP IN CHAIR. EDUCATION ON IS AND DEEP BRETHING EXERCIESE. NG CONNECTED TO LOW INTERMITTENT SUCTION, GASTRIC CONTENTS GREEN/BILE. PT CONTINUES TO COUGH, POSSIBILY SWALLOWING SECRETIONS.
--- NOTE | 2019-08-17 16:40 | NUR ---
PT HAD STOOL LEAK WHILE UP IN CHAIR, STOOL DARK BROWN, MUCUSY, NORMAL ODOR. NG TUBE SUCTION REQUIRED TROUBLESHOOTING. SECRETIONS LEFT IN TUBE, INSERTED AIR INTO VALVE TO MOVE SECRETIONS. PT SEEMS VERY TIRED TODAY. ENCOURAGED ISX10 EVERY HOUR. PT AMBULATED TO BED FROM CHAIR.
--- NOTE | 2019-08-17 17:53 | NUR ---
PATIENT RESTING IN BED. DAUGHTERS AND RN IN ROOM. VITAL SIGNS AND I&O DONE. CALL LIGHT WITHIN REACH. NO OTHER NEEDS AT THIS TIME
--- NOTE | 2019-08-17 20:00 | NUR ---
RECEIVED REPORT AT 1900, FOUND PT IN BED AWAKE WITH FAMILY. PT HAD NO NEEDS AT THAT TIME.
--- NOTE | 2019-08-17 22:00 | NUR ---
V/S ARE WDL WITH HR 80'S-130'S. ALL LOBES ARE COARSE WITH INSPIRATORY/EXPIRATORY WHEEZING PRESENT. ABD SOUNDS ARE PRESENT. +1 EDEMA STILL PRESENT IN ANKLES/FEET. NO NEW CONCERNS NOTED AT THIS TIME. NG TUBE FLUSHED WITH 40MLS H2O.
--- NOTE | 2019-08-17 23:47 | NUR ---
WITH THE HELP OF JANINE ASCENCIO WE REPOSITIONED PT ONTO HER RIGHT SIDE PER HER REQUEST. BEDSIDE TABLE AND CALL LIGHT IN REACH.
--- NOTE | 2019-08-18 02:00 | NUR ---
ROBITUSSIN PRN HAS HELPED PT SLEEP SOME SO FAR. V/S ARE WDL WITH HR IN THE 90'S-140'S. ALL LOBES ARE STILL COARSE WITH INSPIRATORY/ EXPIRATORY WHEEZING PRESENT. ABD SOUNDS ARE PRESENT ABD FEELS SOFTER OVERALL AND PT DENIES PAIN WITH PALPATION. OVERALL SECOND ASSESSMENT IS UNCHANGED FROM THE FIRST. NO NEW ISSUES NOTED SO FAR.
--- NOTE | 2019-08-18 05:30 | NUR ---
THERE WAS NOT REALLY MUCH CHANGE FOR THIS PT THIS SHIFT VS. LAST SPIN TANK TENDER. LOBES ARE STILL VERY COARSE WITH INSPIRATORY/ EXPIRATORY WHEEZING PRESENT. MD ARIAS DID PUT IN FOR ROBITUSSIN AT BEDTIME WHICH DID WELL FOR THIS PT AND ALLOWED HER TO SLEEP SOME. STILL ON 1-2 L O2 NC. ABD SOUNDS ARE PRESENT, ABD IS A BIT SOFTER TO TOUCH, NG TUBE FLUSHED X1 WITH 40MLS H2O. OVERALL STRENGTH +4 +1 ANKLE/FOOT EDEMA BILATERALLY STILL PRESENT.
--- NOTE | 2019-08-18 07:10 | NUR ---
BEDSIDE REPORT FROM JOSIAS MEHTA PT ALERT AND ORIENTED, NPT TO LOW INTERMITTEN SUCTION, NO REQUESTS AT THIS TIME.
--- NOTE | 2019-08-18 10:30 | NUR ---
IMAGING IN ROOM FOR XRAYS, FAMILY AT BEDSIDE, ASKED TO STEP OUT FOR XRAY FOR A FEW MINUTES. FAMILY UPDATED BY THIS RN OF PLAN OF CARE AND SMALL BOWEL FOLLOW THRU PROCEDURE.
--- NOTE | 2019-08-18 11:30 | NUR ---
ASSISTED IMAGING STAFF WITH CONTRAST IN TO NGT FOLLOWED 30ML FLUSH. PT ALSO HAVING NEB TX AND TOLERATING ALL WELL.
--- NOTE | 2019-08-18 14:12 | NUR ---
TELE #8 PLACED LOPRESSOR DOSE 10 MG IV GIVEN, NGT REMOVED AT THIS TIME, PT TOLERATED WELL.
--- NOTE | 2019-08-18 15:48 | NUR ---
PT BACK TO BED AFTER INCONT. OF STOOL, PT REQUESTED SHOWERED THIS WAS PROVIDED, COMPLETE BED CHANGE. DAUGHTER AT BEDSIDE VOICED CONCERNS OF DISCHARGE PLAN AND WOULD LIKE TO SPEAK WITH METHODS ANALYST IN MORE DEPTH FOR ALL POSSIBLE OPTIONS. PT TOLERATED ALL ACTIVITY WELL.
--- NOTE | 2019-08-18 16:14 | NUR ---
Pt walking in the barrientos with PT and family members with wc.
--- NOTE | 2019-08-18 16:56 | NUR ---
PT HAS HAD SMALL BOWEL FOLLOW THRUOUGH WHICH INDICATED BOWEL BLOCK HAS RESOLVED. PT HAS BEEN PLACED BACK TO TELE FOR CLOSE MONITOR OF AFIB WITH UNCONTROLLED HEART RATE. NGT REMOVED, PT STARTED BACK ON PO CARDIAC MEDICATIONS WITH IMPROVED HEART RATE CONTROL. SHE HAS PRODUCTIVE COUGH. SHOWERED TODAY AND WORKED WITH PHYSICAL THERAPY.
--- NOTE | 2019-08-18 18:39 | NUR ---
PT ASSISTED UP TO BATHROOM, INCONT OF BM, VOIDED. ONE PERSON WITH FWW ASSIST. PT TOLERATED ACTIVITY WELL
--- NOTE | 2019-08-18 20:00 | NUR ---
RECEIVED REPORT AT 1900, FOUND PT IN BED SLEEPING. NG TUBE D/C. MD LANG WAS CALLED FOR DIET ORDER AND AN ORDER FOR CLEAR LIQUID AND ADVANCE TOLERATED DIET WAS GIVEN.
--- NOTE | 2019-08-18 22:29 | NUR ---
V/S ARE WDL, PT REMAINS ON 2L 02 NC. ALL LOBES ARE STILL COARSE WITH INSPIRATORY/ EXPIRATORY WHEEZING PRESENT, ABD SOUNDS ARE PRESENT AND ABD IS SOFTER TO TOUCH OVERALL, +1 BILATERAL FOOT/ ANKLE EDEMA PRESISTS. OVERALL WEAKNESS IS STILL +4. PT SO FAR HAS TOLERATED A JELLO WELL. WILL ADVANCE DIET TOMORROW. NO NEW CONCERNS NOTED AT THIS TIME.
--- NOTE | 2019-08-19 00:03 | NUR ---
THIS MINUTE CLERK FOR BASIC TRAFFIC AND PRIMARY NURSE CLEANED/CHANGED PATIENT'S ATTENDS AND APPLIED BARRIER CREAM.
--- NOTE | 2019-08-19 00:14 | NUR ---
PT WAS CHANGED AND BEDDING WAS CHANGED WELL. NO NEW CONCERNS NOTED AT THIS TIME.
--- NOTE | 2019-08-19 02:00 | NUR ---
ALL LOBES ARE MOIST, COARSE AND HAVE INSPIRATORY/ EXPIRATORY WHEEZING PRESENT. ABD SOUNDS ARE PRESNT. V/S ARE WDL AND HR IS WELL CONTROLLED SINCE START OF SHIFT.
--- NOTE | 2019-08-19 06:16 | NUR ---
HR IS MUCH BETTER CONTROLLED AT THIS TIME. ALL LOBES ARE STILL UNCHANGED FROM PREVIOUS SHIFTS. ABD SOUNDS ARE PRESENT AND PT STILL HAS GASTROGRAFFIN STOOLS. PT OVERALL IS STILL VERY WEAK. OTHER V/S ARE WDL. NO NEW CONCERNS NOTED. OVERALL PICTURE OF THIS PT SEEMS TO ME UNCHANGED THOUGH.
--- NOTE | 2019-08-19 07:41 | NUR ---
PT RESTING IN BED, EYES CLOSED. PT APEPARS COMFORTABLE, FLACC 0/10. RESP EVEN AND NON LABORED. PERSONAL SUPPLIES AND CALL LIGHT WITHIN REACH. NO NEEDS AT THIS TIME.
--- NOTE | 2019-08-19 13:53 | NUR ---
PT WORKED WITH PT WALKING IN HALLWAY. 1PA WITH WALKER, PT TOLERATED WELL.
--- NOTE | 2019-08-19 17:01 | NUR ---
BEEF BROTH PROVIDED TO PT PER HER REQUEST. PT REPORTS FEELING BETTER THIS EVENING, DENIES SOB. DAUGHTER AT BEDSIDE VISITING WITH PT. PT DENIES NEEDS AT THIS TIME. CALL LIGHT WITHIN REACH.
--- NOTE | 2019-08-19 17:21 | NUR ---
Met with Doris's daughter, Brianna, out of her room. She has multiple questions about placement and transitional care. 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 Explained options for SNF, TC, assisted living, and home care and possibility of Medicaid as pt does not own anything or have money. Daughter at this time would like pt to go to transitional care bed for further rehab if she meets criteria and then determine where she will go after depending on how well she recoups. Dr De La Rosa updated.
--- NOTE | 2019-08-19 17:35 | NUR ---
PT FAMILY IN ROOM. PT SIPPING ON BROTH.
--- NOTE | 2019-08-19 20:00 | NUR ---
RECEIVED REPORT AT 1900, FOUND PT AWAKE IN BED WITH FAMILY AT BEDSIDE, A DAUGHTER THAT IS. ASSESSMENT WAS DONE AT THIS TIME. PT IS AAOX4, OVERALL STRENGTH +4. +1 PEDAL BILATERAL EDEMA PRESENT. SEB WAS CLEAR, ALL OTHE LOBES HAVE EXPIRATORY WHEEZING PRESENT. LOBES ARE A BIT COARSE BUT NOT MUCH IN PREVIOUS ASSESSMENTS. ABD SOUNDS ARE PRESENT. PT BRIEF WAS CHANGED AND A SMALL AMOUNT OF STOOL WAS PRESENT. REDNESS IN FARHAD AREA WAS NOTED AND NYSTATIN WAS APPLIED. NO NEW CONCERNS WERE NOTED.
--- NOTE | 2019-08-19 20:45 | NUR ---
PATIENT ASSISTED TO THE RESTROOM A 1PA W/FWW. PATIENT IS SOB WITH AMBULATION AND IS CURRENTLY WEARING OXYGEN. PATIENT WAS ABLE TO VOID AND HAVE SMALL LOOSE BM. PATIENT IS NOW BACK IN BED RESTING. PATIENT REPOSITIONED IN BED. AFTER RETURNING TO BED PATIENTS SOB IMPROVED. PATIENT REMIANS ON 2L VIA NC. SCDS IN PLACE. PATIENTS FAMILY REMAINS IN THE ROOM. NO FURTHER NEEDS NOTED. CALL LIGHT IN REACH.
--- NOTE | 2019-08-20 | NUR ---
AT 2107 THE DAUGHTER BERKLEY CAME AND GOT ME OUT OF ROOM 120 STATING THAT HER MOTHER WAS NOT ACTING RIGHT, NOT TALKING. I ENTERED ROOM 119 AT THAT TIME, A NEURO CHECK WAS DONE AND WAS NOT NORMAL. PT WAS UNABLE TO FOLLOW ANY COMMANDS AND WAS NOT SPEAKING AT ALL. V/S WERE TAKEN AND THEY WERE WDL. A NIH WAS DONE AT THAT TIME BUT UNFORTUNATLEY IT DID NOT SAVE IN THE COMPUTER AND NEEDS TO BE ADDED. THE INITIAL NIH SCORE WAS 25. THE LAST NIH BEFORE TRANSPORT WAS 18. MD ARIAS WAS CALLED AT 2108 AND HE ARRIVED ON THE FLOOR AT 2110. PT WAS OFF TO CT SCAN AT 2116, BG WAS 191, PT WAS BACK FROM CT IN ROOM AT 2199. STROKE ROBOT WAS IN ROOM AND NEUROLOGIST CALLED AND DISCUSSED TREATMENT OPTIONS WITH FAMILY WHO WAS AT BEDSIDE. A DECISION WAS MADE TO START TPA AND TO TRANSFER PT OUT TO A HIGHER LEVEL OF CARE FACILITY. SECOND IV SITE WAS PLACED AT 2248, 20 LEFT FOREARM, LABS WERE DRAWN ALSO, T[facility] AND TPA BOLUS WAS GIVEN AT 2250. TPA INFUSION WAS STARTED AT 225. I DID REMAIN WITH PT THE ENTIRE TIME UNTIL PT LEFT FACILITY. [facility] ARRIVED AT 2340 AND PT LEFT WITH [facility] AT 2355.
--- NOTE | 2019-08-20 03:14 | NUR ---
08/19/19 6498 TPA TO BE ADMINISTERED. TPA MIXED WITH NEUROLOGIST DR. ESTEVES - PATIENT 75KG, RECONSTITUTED ALTEPLASE = 100MG IN 100ML OF NS. WASTE TO BE 32ML = 32MG BOLUS TO BE 6.8ML = 6.8MG IVP OVER 1 MINUTE, REMAINING 61.2ML = 61.2MG TO BE INFUSED OVER 1 HOUR. IVP BOLUS GIVEN @ 2250 AND IV INFUSION STARTED @ 2259.
--- NOTE | 2019-08-20 16:05 | EKG ---
[facility] [address] [place], [place] [address] Signed Atrial fibrillation N[address]pecific ST and T wave abnormality Abnormal ECG No previous ECGs available Confirmed by RIP ARIAS DO ([id number]) on 08/20/2019 4:05:12 PM Electronically Signed By: RIP ARIAS DO 08/20/19 1605 PATIENT NAME: FILOMENACATHY M Electrocardiogram DATE OF : [birth year] PHYSICIAN: RIP ARIAS DO REPORT #: [id number] REPORT IS CONFIDENTIAL AND NOT TO BE RELEASED WITHOUT AUTHORIZATION
== END 2019-08-19 23:55 | disposition short-term general hospital (02) | DRG 193 ==
LOC: ED 19:07 → MS 21:17
PROVIDERS: ADMIT Internal Medicine
DX: J18.9 Pneumonia, unspecified organism (principal); J96.01 Acute respiratory failure with hypoxia; I63.9 Cerebral infarction, unspecified; K56.609 Unspecified intestinal obstruction, unspecified as to partial versus complete obstruction; I48.21 Permanent atrial fibrillation; I50.32 Chronic diastolic (congestive) heart failure; R47.01 Aphasia; I11.0 Hypertensive heart disease with heart failure; E78.5 Hyperlipidemia, unspecified; E03.9 Hypothyroidism, unspecified; D45 Polycythemia vera; Z66 Do not resuscitate; Z88.1 Allergy status to other antibiotic agents; Z88.8 Allergy status to other drugs, medicaments and biological substances; Z79.01 Long term (current) use of anticoagulants; Z79.899 Other long term (current) drug therapy
CPT/HCPCS: 36415; 51701; 70450; 70496; 70498; 71045; 74018; 74177; 74250; 80048; 80053; 81001; 83605; 83735; 83880; 84484; 85025; 87040; 87070; 87205; 87449; 87502; 87899; 90662; 93005; 93010; 94640; 94667; 94668; 94760; 97110; 97116; 97162; 97166; 97530; 97535; 99285-25; G0008; J0295; J0456; J1644; J2405; J2765; J2930; J2997; J3475; J3480; J7060; J7121; Q9967

== ENCOUNTER 2019-11-07 19:15 | Inpatient (IN) | payer MEDICARE, OTHER ==
[~2019-11-07] VITALS: Ht 167.6 cm; Wt 73.4 kg
[~2019-11-07 19:15] MED LIST changes: +ATENOLOL25 MG PO; +CARTIA XT240 MG PO
[2019-11-07] MEDS ORDERED: VITAMIN D50000 UNI1 PO (19:41)
--- NOTE | 2019-11-07 23:20 | NUR ---
PT ARRIVED TO THE FLOOR VIA STRETCHER, WITH HER 2 DAUGHTERS. WE SLID HER OVER TO THE BED AND POSITIONED HER FOR COMFORT. RR IS EVEN AND NONLABORED AND SHE IS ON 2LNC. SHE IS RESTING NOW WITH EYES CLOSED, DAUGHTER TANISHA WHO IS POA IS ANSWERING HX QUESTIONS.
--- NOTE | 2019-11-07 23:20 | EKG ---
[facility] [address] [place], [place] [address] Signed Atrial fibrillation Nonspecific ST and T wave abnormality Abnormal ECG When compared with ECG of 19-AUG-2019 22:12, No significant change was found Confirmed by ABDI DANG MD ([id number]) on 11/07/2019 11:19:59 PM Electronically Signed By: ABDI DANG MD 11/07/19 2320 PATIENT NAME: CATHY BUTT Electrocardiogram DATE OF : [birth year] PHYSICIAN: ABDI DANG MD REPORT #: [id number] REPORT IS CONFIDENTIAL AND NOT TO BE RELEASED WITHOUT AUTHORIZATION
--- NOTE | 2019-11-07 23:50 | NUR ---
PT IS RESTING WITH EYES CLOSED, RR IS EVEN AND NONLABORED. DAUGHTERS LEFT TO GET SOMETHING TO EAT. HER DAUGTHER TANISHA WILL RETURN TO STAY THE NIGHT. CALL LIGHT IS CLOSE AND BED ALARM IS ON.
--- NOTE | 2019-11-08 00:04 | NUR ---
pt RESTING IN BED. BRIEF PHYSICAL RESPONCE TO QUESTIONS. ASSESSMENT DONE, pt INTERACTED MINIMALLY. BLANKETS PROVIDED. CALL LIGHT WITHIN REACH. BED ALARM ON.
--- NOTE | 2019-11-08 01:04 | NUR ---
ROUNDED ON pt. RESTING WITH EYES CLOSED, RESPIRATIONS REGULAR AND UNLABORED. CALL LIGHT WITHIN REACH.
--- NOTE | 2019-11-08 03:31 | NUR ---
WOKE pt FOR VITALS AND ASSESSMENT. pt STARTLED. ORIENTED TO PLACE AND SITUATION. PLEASANT. ANSWERED ALL QUESTIONS. STATED "I DID SLEEP SOME." DENIED PAIN AT THIS TIME. VITALS AND ASSESSMENT DONE. NO REQUESTS AT THIS TIME. CALL LIGHT WITHIN REACH. DAUGHTER AT BEDSIDE.
--- NOTE | 2019-11-08 07:57 | NUR ---
PT SLEEPING AT TIME OF BEDSIDE REPORT DAUGHTER PRESENT IN ROOM. PT AWAKENED FOR ASSESSMENT. DAUGHTER REPORTS XERELTO WAS ADMINISTERED PRIOR TO COMING TO HOSPITAL, PHARMACY NOTIFIED AND MORNING DOSE HELD
--- NOTE | 2019-11-08 11:20 | NUR ---
PT UP AMBULATES THE ADLER NOT WELL TOLERATED SATS DIP TO 80". PT RECOVERS QUICKLY SITTING DOWN SATS RETURN TO 90'S. CURRENTLY SITTING UPRIGHT IN A CHAIR DOZING. PT APPEARS COMFORTABLE BREATHING EVEN AND UNLABORED
--- NOTE | 2019-11-08 11:39 | NUR ---
PT USES I/S EFFECTIVELY WITH VERBAL INSTRUCTION. DAUGHTER REMAINS IN THE ROOM.
--- NOTE | 2019-11-08 13:50 | NUR ---
PT CONTINUES UP IN THE CHAIR THIS SHIFT, DAUGHTER PRESENT IN THE ROOM. PT USING I/S INTERMITTANTLY.
--- NOTE | 2019-11-08 17:39 | NUR ---
PT CONTINUES UP IN THE CHAIR DAUGHTER IN ROOM. TOLERATES EVENING MEAL WELL DENIES ANY DISCOMFORTS OR NEEDS OF.
--- NOTE | 2019-11-08 19:10 | NUR ---
RECIEVED REPORT FROM JANINE BAKER. pt RESTING IN THE CHAIR, FAMILY AT BEDSIDE. NO REQUESTS AT THIS TIME. WHITEBOARD UPDATED. pt AGREED TO AMBULATE IN ADLER WITH JANINE BAKER.
--- NOTE | 2019-11-08 19:15 | NUR ---
pt ambulates short lap in the barrientos with fww sba well tolerated no sob or other c/o
--- NOTE | 2019-11-08 21:30 | NUR ---
ASSISTED PT TO PUT BIGGER SOCKS ON THE OTHER ONES WHERE GETTING TOO TIGHT. THEN ASSISTED PT TO THE RESTROOM 1PA WITH FWW AND GAIT BELT. AFTER ASSISTING PT OFF THE TOILET AND HELPING PULL UP HER BRIEFS SHE LOST HER BALANCE AND WENT BACKWARDS AND CAUGHT HERSELF ON THE WALL. HER FEET REMAINED ON THE FLOOR AND THIS RN USED THE GAIT BELT TO PULL HER UPPER BODY FORWARD SO SHE COULD REGAIN HER BALANCE. ASSISTED PT BACK TO BED AND HER DAUGHTER ARRIVED SOON AFTER. SHE SAID THAT WHEN SHE HAS WORKED WITH PT IN THE PAST THEY FOUND THAT SHE TENDS TO LOSE HER BALANCE AND FALL BACKWARD. NOTIFIED PT'S PRIMARY RN AND NURSES ASSISTANT OF THIS SO WE CAN BE EXTRA CAREFUL OF THIS WHEN SHE AMBULATES. PT AND DAUGHTER DENY NEEDS AT THIS TIME AND CALL LIGHT IS CLOSE. VS TAKEN AND ARE STABLE.
--- NOTE | 2019-11-08 22:08 | NUR ---
ROUNDED ON pt. ASSESSMENT DONE. pt TALKED ABOUT HER FALL AND BALANCE ISSUE. HER DAUGHTER, TANISHA, REMARKED "WHEN I CAME IN AFTER DINNER IT WAS LIKE MOM WAS BACK, SHE IS JUST DOING SO MUCH BETTER." NO REQUESTS AT THIS TIME. SETTLED IN BED. DAUGHTER WILL STAY THE NIGHT. CALL LIGHT WITHIN REACH.
--- NOTE | 2019-11-09 00:29 | NUR ---
ROUNDED ON pt. RESTING WITH EYES CLOSED, RESPIRATIONS REGULAR AND UNLABORED. CALL LIGHT WITHIN REACH. DAUGHTER AT BEDSIDE.
--- NOTE | 2019-11-09 03:06 | NUR ---
ROUNDED ON pt. RESTING WITH EYES CLOSED, RESPIRATIONS REGULAR AND UNLABORED. CALL LIGHT WITHIN REACH.
--- NOTE | 2019-11-09 03:40 | NUR ---
PT CALLED FOR ASSISTANCE TO THE RESTROOM. 1PA WITH FWW AND GAIT BELT. CHANGED BEDDING AND PT IS BACK IN BED. SHE DENIES FURTHER NEEDS AT THIS TIME. CALL LIGHT IS CLOSE.
--- NOTE | 2019-11-09 05:21 | NUR ---
pt RESTED MOST OF SHIFT. EPISODE OF INCONT URINE. UNSTEADY WHEN AMBULATING WITH FWW. TENDS TO FALL BACK. TOLERATING DIET. DENIES PAIN. DAUGHTER REMAINED AT BEDSIDE THROUGHOUT NIGHT. USES CALL LIGHT APPROPRIATELY.
--- NOTE | 2019-11-09 06:02 | NUR ---
IN TO DO ASSESSMENT. RT NOTIFIED OF WHEEZING. pt REPORTED SHE WAS DOING "OKAY" NO CHANGES IN ASSESSMENT. DAUGHTER AT BEDSIDE. [facility].
--- NOTE | 2019-11-09 06:22 | NUR ---
ATTEMPT TO OBTAIN WEIGHT AT THIS TIME. PATIENT STATES SHE DOES NOT WANT TO WEIGH NOW, WOULD LIKE TO WAIT UNTIL SHE GETS UP FOR BREAKFAST.
--- NOTE | 2019-11-09 07:13 | NUR ---
PT SLEEPING SOUNDLY AT REPORT, DAUGHTER REMAINS IN ROOM
--- NOTE | 2019-11-09 08:13 | NUR ---
PATIENT SITTING UP IN CHAIR. DAUGHTER IN ROOM. LINENS CHANGED. CALL LIGHT WITHIN REACH. NO OTHER NEEDS AT THIS TIME
--- NOTE | 2019-11-09 08:16 | NUR ---
PT UP TO THE CHAIR THIS MORNING EATING BREAKFAST. DENIES PAIN, SOB, OR OTHER DISCOMFORTS. DAUGHTER REMAINS IN THE ROOM WITH HER
--- NOTE | 2019-11-09 08:59 | NUR ---
PT TOLERATES 100% OF BREAKFAST SITTING UP IN CHAIR. AUDIBLE WHEEZES WITHOUT STETHASCOPE NEB TREATMENT GIVEN
--- NOTE | 2019-11-09 09:52 | NUR ---
DR DANG IN TO SEE HER
--- NOTE | 2019-11-09 09:57 | NUR ---
PATIENT SLEEPING IN THE RECLINER. RN AND DAUGHTER IN ROOM. VITAL SIGNS AND I&O DONE. CALL LIGHT WITHIN REACH. NO OTHER NEEDS AT THIS TIME
--- NOTE | 2019-11-09 10:39 | NUR ---
DR DANG IN TO SEE PT, DISCUSSING THE PLAN FOR TODAY
--- NOTE | 2019-11-09 10:51 | NUR ---
PATIENT SITTING UP IN CHAIR. DAUGHTER IN ROOM. IV WRAPPED. PATIENT GOES TO THE BATHROOM TO TAKE A SHOWER. PATIENT USES WALKER AND GATE BELT. ONE PERSON ASSISTING. PATIENT USING A CLEAN GOWN AND ADULT PULL UP. PATIENT BACKS TO CHAIR. WARM BLANKET PROVIDED. CALL LIGHT WITHIN REACH. NO OTHER NEEDS AT THIS TIME
--- NOTE | 2019-11-09 12:18 | NUR ---
PT CONTINUES UP IN THE CHAIR EATS 100% OF NOON MEAL. BREATHING SOUNDS IMPROVED SINCE LASIX ADMINISTERED. NEW ABX STARTED PER MD. CALL LIGHT IN HAND FRESH H20 AT CHAIRSIDE
--- NOTE | 2019-11-09 13:46 | NUR ---
PATIENT SITTING UP IN CHAIR. VITAL SIGNS AND I&O DONE. CALL LIGHT WITHIN REACH. NO OTHER NEEDS AT THIS TIME
--- NOTE | 2019-11-09 15:44 | NUR ---
CALL LIGHT ANSWERED. PATIENT SITTING UP IN CHAIR. DAUGHTERS IN ROOM. PATIENT GOES TO USE THE BATHROOM. PATIENT USES WALKER AND GAIT BELT. PATIENT'S ADULT PULL UP CHANGED. PATIENT BACKS TO CHAIR. ICE WATER GIVEN. CALL LIGHT WITHIN REACH. NO OTHER NEEDS AT THIS TIME
--- NOTE | 2019-11-09 16:13 | NUR ---
PT SITTING UPRIGHT IN CHAIR DOZING DAUGHTER IN ROOM
--- NOTE | 2019-11-09 17:18 | NUR ---
PATIENT SITTING UP IN CHAIR. DAUGHTER IN ROOM. VITAL SIGNS AND I&O DONE. CALL LIGHT WITHIN REACH. NO OTHER NEEDS AT THIS TIME
--- NOTE | 2019-11-09 17:53 | NUR ---
PT UP TO TOILET BREATHING LABORED AND WHEEZY BROADCAST OPERATIONS MANAGER NOTIFIED TO EVALUATE WITH THIS ACAD[employer] DEAN. SATS REMAIN LOW 90'S PT DENIES FEELING SOB STATES SHE JUST DOESN'T FEEL GOOD BUT DOES NOT FEEL THOUGH SHE CAN'T BREATH. FAMILY REMAIN IN THE ROOM
--- NOTE | 2019-11-09 19:06 | NUR ---
RECEIVED REPORT FROM JANINE BAKER. pt RESTING IN CHAIR. FAMILY AT BEDSIDE. WORK OF BREATHING EVIDENT. pt REPORTED "I FEEL LIKE I'M BREATHING OKAY RIGHT NOW" DAUGHTER, TANISHA, REMARKED "I THINK THIS IS THE BEST I'VE SEEN HER ALL DAY" CALL LIGHT WITHIN REACH. WHITEBOARD UPDATED.
--- NOTE | 2019-11-09 20:45 | NUR ---
ROUNDED CHARGE. PATIENT IS RESTING IN RECLINER. PATIENT HAS FAMILY PRESENT IN THE ROOM. ALL COMMENTS AND QUESTIONS ANSWERED BY CARLOS EDUARDO MEHTA. RT IN ROOM TO ASSES PATIENT. NO NEEDS NOTED. CALL LIGHT IN REACH.
--- NOTE | 2019-11-09 20:50 | NUR ---
IN TO ASSESS pt. pt SITTING IN CHAIR, WORKING TO BREATH, ABLE TO SPEAK IN COMPLETE SENTENCES MOST OF THE TIME. WHEEZES HEARD IN UPPER AIRWAY. RT AWARE, TREATMENT GIVEN. pt RECENTLY RECEIVED TYLENOL FOR SHOULDER PAIN, IS NOW COMPLAINING OF A HEADACHE, COOL COMPRESS PROVIDED. O2 SAT 85% ON RA, 2L O2 VIA NC O2 SAT 94%. UPDATED ON pt CONDITION.
--- NOTE | 2019-11-09 21:00 | NUR ---
BREATHING TREATMENT COMPLETED. ASSESSMENT DONE. pt DENIES IMPROVEMENT IN BREATHING. AUDIBLE WHEEZING. ASSISTED pt TO BED FROM CHAIR. NO REQUESTS AT THIS TIME. CALL LIGHT WITHIN REACH. DAUGHTER AT BEDSIDE.
--- NOTE | 2019-11-09 22:00 | NUR ---
DAUGHTER REQUESTED PILLOWS AND BLANKETS, PROVIDED. ROUNDED ON pt. AUDIBLE WHEEZING. RESTING WITH EYES CLOSED, RESPIRATIONS REGULAR. DAUGHTER AT BEDSIDE. CALL LIGHT WITHIN REACH.
--- NOTE | 2019-11-10 00:17 | NUR ---
IV ABX DUE. pt UP TO TOILET AND BACK TO BED. AUDIBLE WHEEZES. O2 SAT 97% ON 2L. ABX INFUSING (SEE MAR). WARM BLANKET PROVIDED. CALL LIGHT WITHIN REACH. DAUGHTER AT BEDSIDE.
--- NOTE | 2019-11-10 00:48 | NUR ---
IV ABX INFUSION COMPLETED. SL. pt RESTING WITH EYES CLOSED, AUDIBLE WHEEZE, BREATHES REGULAR. CALL LIGHT WITHIN REACH.
--- NOTE | 2019-11-10 01:55 | NUR ---
CALL LIGHT ON. pt UP TO TOILET AND BACK TO BED. WHEEZING AUDIBLE. LUNG SOUNDS COARSE IN BASES. ASSESSMENT DONE. NO FURTHER REQUESTS AT THIS TIME. CALL LIGHT WITHIN REACH.
--- NOTE | 2019-11-10 01:57 | NUR ---
HELPED PT TO THE BATHROOM AND BACK TO BED WITH HER FWW. BEDSIDE TABLE AND CALL LIGHT IN REACH. PT NEEDS NOTHING MORE AT THIS TIME.
--- NOTE | 2019-11-10 04:15 | NUR ---
CALL LIGHT ON. pt UP TO VOID AND BACK TO BED. pt DENIED SOB. BREATHING LABORED. WHEEZES AUDIBLE. 2L O2 VIA NC. WARM BLANKET PROVIDED. NO FURTHER REQUESTS AT THIS TIME. CALL LIGHT WITHIN REACH.
--- NOTE | 2019-11-10 05:31 | NUR ---
pt RESTED ON AND OFF DURING SHIFT. pt UP MULTIPLE TIMES TO VOID. INCONT AT TIMES. 1PA FWW. DAUGHTER REMAINED AT BEDSIDE. BREATHING LABORED, AUDIBLE WHEEZES THROUGHOUT SHIFT. pt DENIED SOB AND STATED SHE FELT "A LITTLE BETTER TODAY" USES CALL LIGHT APPROPRIATELY.
--- NOTE | 2019-11-10 06:10 | NUR ---
IN TO ASSESS pt. AUDIABLE WHEEZES, LUNG SOUNDS COARSE. pt REPORTED SHE WAS "FEELING A LITTLE BETTER THAN YESTERDAY" O2 SAT 96% ON 2L VIA NC. RESPIRATIONS 26 AND LABORED. MD NOTIFIED OF pt STATUS.
--- NOTE | 2019-11-10 06:23 | NUR ---
VITALS AND I&OS DONE AND CHARTED. HELPED PT TO THE BATHROOM AND BACK TO BED WITH HER FWW. GARBAGES EMPTIED. BEDSIDE TABLE AND CALL LIGHT IN REACH.
--- NOTE | 2019-11-10 06:30 | NUR ---
pt UP TO VOID, LABORED BREATHING. AFTER GETTING BACK TO BED, pt REPORTED THAT "I JUST DON'T FEEL WELL" O2 SAT 94% AFTER A FEW MINUTES OF RECOVERY, RESPIRATORY RATE DECREASED FROM 28 TO 26. VITALS AND I&O RECORDED. IV ABX INFUSING (SEE MAR). RT UPDATED.
--- NOTE | 2019-11-10 06:54 | NUR ---
IV ABX COMPLETED, SL. GARCIA, RT IN ROOM. pt CURRENTLY TOLERATING CPAP WITH 2L BLEED IN.
--- NOTE | 2019-11-10 07:14 | NUR ---
REPORT RECEIVED FROM JANINE THIBODEAUX. PT RESTING IN BED WITH EYES CLOSED. CPAP IN PLACED WITH RR = 27 BPM. JANINE THIBODEAUX STATES MD IS AWARE OF PTS INCREASED WORK OF BREATHING AND RESPIRATORY RATE. FAMILY AT BEDSIDE. BED RAILS UP. CALL LIGHT WITHIN REACH.
--- NOTE | 2019-11-10 07:54 | NUR ---
PATIENT SLEEPING.RN AND DAUGHTER IN ROOM. ICE WATER PROVIDED. CALL LIGHT WITHIN REACH. NO OTHER NEEDS AT THIS TIME
--- NOTE | 2019-11-10 08:07 | NUR ---
MORNING ASSESSMENT AND MEDICATION DUE. PT RESTING IN BED WITH CPAP IN PLACE RR = 28. PT AWAKENS TO VOICE AND LIGHT TOUCH. PT ORIENTED X4, DENIES PAIN AND NAUSEA. WORK OF BREATHING NOTED WITHOUT CPAP. ACCESSORY MUSCLE USE. LUNG SOUNDS CORSE, TIGHT AND DEMINISHED. VITALS TAKEN, MEDICATION GIVEN. RT CALLED FOR BREATHING TREATMENT. CPAP REPLACED TO PTS FACE. WORK OF BREATHING LESSENS SIGNIFICANTLY WITH CPAP IN PLACE. DAUGHTER AT BEDSIDE, MANY QUESTIONS, EDUCATION DONE, QUSTIONS ANSWERED. PT ALLOWED TO REST AT THIS TIME. BED RAILS UP. CPAP IN PLACE. CALL LIGHT WITHIN REACH. MD AWARE OF PT STATUS.
--- NOTE | 2019-11-10 08:20 | NUR ---
Spoke with pt's daughter Brianna, as she is sleeping with CPAP in place. Per Brianna pt has been living in an assisted living, following IP stroke rehab in [facility]. She has been residing in an assisted living in [place]. Daughter feels pt has been not feeling well for a few days and her health is extremely fragile at this point. Daughter is unsure of what she would like on dc, possibly to home with her or maybe back to an assisted living.
--- NOTE | 2019-11-10 08:55 | NUR ---
THIS RN TO BEDSIDE WITH MD. ALEGRE (PATIENT SAFETY OFFICER) WITH FWW UP TO CHAIR. WHEEZING, ACCESSORY MUSCLE USE NOTED. RR = 32. PT SPEAKING IN 3 WORD PHRASES. RT CALLED TO PLACE CPAP BACK ON PTS SETTINGS WERE REMOVED AND MASK WAS DISMANTLED. ORDERS TO TRANSFER PT TO CCU. WATER AND SEWER SYSTEMS SUPERVISOR NOTIFED. CHARGE NURSE NOTIFED. RT TO BEDSIDE, CPAP BACK IN PLACE. O2 AT 95% ON2L BLEED INTO CPAP. RIGGS CATHETER PLACED PER PROTOCOL. WARM BLANKETS PROVIDED. AWAITING CCU ROOM.
--- NOTE | 2019-11-10 09:20 | NUR ---
ADMINISTERED MORNING MEDS. PT SWALLOWED WITHOUT DIFFICUTLY. STATES HE IS HAVING INCREASED DIZZYNESS THIS MORNING. COMMUNITY LIAISON OFFICER IN ROOM TO ASSIST PT TO SIT AT EDGE OF BED AND EAT BREAKFAST.
--- NOTE | 2019-11-10 09:30 | NUR ---
PT TRANSFERED TO CCU WITH CPAP AND O2 BLEED IN AT 2L IN PLACE. RIGGS CATETHER DRAINGING TO GRAVITY. REPORT GIVEN TO GERARDO CCU RN. ABX STARTED (SEE MAR). NO ADDITIONAL. FAMILY WITH PT. ALL QUESTIONS AND CONCERNS ADDRESSED.
--- NOTE | 2019-11-10 09:45 | NUR ---
89 YEAR OLD FEMALE PATIENT OF DR. AUGUSTIN ADMITTED TO CCU FROM [facility] WITH DX OF PNEUMONIA/CHF/RESP INSUFF. UPON ADMIT PATIENT IS ON CPAP WITH O2 BLED IN AT 2 L. PRESSURES ARE 5-7. HOB IS ELEVATED. REPORT RECIEVED AT BEDSIDE. DAUGHTER IN THE ROOM AND IS VERY INVOLVED WITH HER MOTHERS CARES. MONITOR APPLIED, SHOWS AFIB WITH HR 90'S. ASSESSMENT DONE. MICHAEL BORJA.
--- NOTE | 2019-11-10 10:30 | NUR ---
ABG RESULTS ON 3 L VIA CPAP. PH-7.46, PCO2-37.0, PO2-64, HCO3-27.3. DR. AUGUSTIN AWARE OF ABG RESULTS. NO FUTHER CHANGES.
--- NOTE | 2019-11-10 11:00 | NUR ---
RESTING WITH HOB ELEVATED. REMAINS ON CPAP.
--- NOTE | 2019-11-10 11:40 | NUR ---
OFF CPAP AT THIS TIME. NOW ON 02 AT 3 L NC. TAKING SIPS OF WATER, REFUSING LUNCH. ASSESSMENT DONE. REPOSITIONED TO RIGHT SIDE.
--- NOTE | 2019-11-10 12:40 | NUR ---
CPAP REAPPLIED. PATIENT IS RESTFUL ON RIGHT SIDE.
--- NOTE | 2019-11-10 12:50 | NUR ---
C/O NAUSEA. CPAP OFF, O2 AT 3 LITERS APPLIED.
--- NOTE | 2019-11-10 13:00 | NUR ---
DENIES NAUSEA NOW. REMAINS OFF CPAP, NO INCREASED RESP DISTRESS NOTED AT THIS TIME. FAMILY REMAINS IN ROOM.
--- NOTE | 2019-11-10 14:15 | NUR ---
RESTLESS, C/O RIGHT HIP AND R CALF PAIN. REPOSITIONED TO BACK.
--- NOTE | 2019-11-10 16:00 | NUR ---
assessment done. HAS BEEN RESTLESS MOST OF DAY.
--- NOTE | 2019-11-10 16:30 | NUR ---
IS CHILLING. HR TO 155. REMAINS ON CPAP. HAVING DIFICULT TIME GETTING A TRUE OXIMETER READING. DR. AUGUSTIN AWARE.TEM-101.7. ORDERS RECIEVED TO DO BLOOD CULTURES X 2 SITES AND GIVE TYLENOL. THIS DONE.
--- NOTE | 2019-11-10 17:00 | NUR ---
PO MEDS GIVEN.
--- NOTE | 2019-11-10 17:15 | NUR ---
VOMITED SMALL AMOUNT OF EMESIS, SMALL AMOUNT OF EMESIS VOMITED INTO CPAP MASK. CPAP HELD. NOW ON O2 AT [address] AUGUSTIN AWARE.
--- NOTE | 2019-11-10 18:30 | NUR ---
INC OF STOOL. DENEIS ABD PAIN. STOOL IS BILE GREEN IN COLOR. URING OUTPUT IS 75 ML OVER PAST 3 HRS. WILL NOTIFY
--- NOTE | 2019-11-10 18:50 | NUR ---
DR. AUGUSTIN UPDATED ON PATIENT HYPOTENSION, U/O. ORDERS RECIEVED TO HANG LR BOLUS OF 500 ML OVER 1 HOUR. THIS DONE.
--- NOTE | 2019-11-10 19:20 | NUR ---
REPORT TO NEXT SHIFT.
--- NOTE | 2019-11-10 20:00 | NUR ---
SHIFT ASSESSMENT RECEIVED FROM JANINE CASTELAN. ASSESSMENT COMPLETED, SEE DOCUMENTATION. PT IS A/OX4, DENIES CHEST PAIN AND SOB. 5L O2 VIA NC IN PLACE, WHEEZES AUSCULTATED IN UPPER AIRWAY. RIGGS BAG CHANGED TO UROMETER FOR CLOSER MONITORING OF UO. PT INCONTINENT OF SMALL AMOUNT BILE-COLORED LIQUID BM. PERIANAL CLEANSING PROVIDED, NEW CHUX AND ATTENDS IN PLACE. RIGGS CARE PROVIDED. BP REMAINS SOFT, 500ML BOLUS CONTINUES TO INFUSE. DISCUSSED PLAN OF CARE WITH PATIENT AND HER 3 DAUGHTERS.
--- NOTE | 2019-11-10 21:00 | NUR ---
DR. AUGUSTIN AT BEDSIDE TO EVALUATE PT AND DISCUSS TREATMENT PLAN WITH FAMILY. SEE NEW ORDERS FOR MEDICATION CHANGES.
--- NOTE | 2019-11-11 | NUR ---
SHIFT ASSESSMENT COMPLETED, SEE DOCUMENTATION. NO CHANGES FROM PREVIOUS ASSESSMENT. PT CONTINUES TO DENY PAIN, SOB, AND NAUSEA. TITRATED O2 TO 4L. REMAINS AFEBRILE. CALL LIGHT WITHIN REACH, WILL CONTINUE TO MONITOR.
--- NOTE | 2019-11-11 01:09 | NUR ---
TITRATED O2 TO 3L.
--- NOTE | 2019-11-11 02:00 | NUR ---
PT APPEARS TO BE SLEEPING SOUNDLY. VITAL SIGNS STABLE, UO QS. WILL CONTINUE TO MONITOR.
--- NOTE | 2019-11-11 04:05 | NUR ---
ASSESSMENT COMPLETED, NO CHANGES FROM PREVIOUS-SEE DOCUMENTATION. VITAL SIGNS STABLE AND UO QS. CALL LIGHT REMAINS WITHIN REACH. PT'S DAUGHTER AT BEDSIDE.
--- NOTE | 2019-11-11 07:30 | NUR ---
REPORT RECIEVED. PATIENT IS LAYING IN BED. NO DISTRESS NOTED. RIGGS CATHIS PATENT. HOB ELEVATED. IV ABX INFUSING.
--- NOTE | 2019-11-11 08:30 | NUR ---
IVF TO HOLD PATIENT WHIT WHEEZES WITH SCATTERED CRACKLES. MMD AWARE.
--- NOTE | 2019-11-11 09:25 | NUR ---
COMPLETE ASSESSMENT DONE NOW PATIENT WAS SLEEPING EARLIER. TOOK BREAKFAST WELL. DENIES NAUSEA. TALKED WITH PATIENT AND FAMILY MEMBERS ABOUT POC FOR DAY, ALL INDICATE UNDERSTANDING. DR. AUGUSTIN HERE TO SEE PATIENT AND TALK WITH FAMILY ALSO.
--- NOTE | 2019-11-11 12:00 | NUR ---
REFUSING LUNCH. NO FUTHER CHANGES.
--- NOTE | 2019-11-11 13:20 | NUR ---
OOB TO CHAIR. INC OF SMALL AMOUNT OF BILE GREEN STOOL. INCREASED SOB WITH EXERTION. ASSESSMENT DONE. HAS HARSH OCC PRODUCTIVE COUGH OF CLEAR SPUTUM. FLAT AFFECT. ENC TO USE I.S. AND ACEPELLA. C/O SORE NECK, WARM PACK APPLIED TO BACK OF NECK.
--- NOTE | 2019-11-11 14:43 | NUR ---
BACK TO BED WITH ASSIST. CONTINUE WITH INCREASED UPPER AIRWAY WHEEZES , INCREASE WITH EXERTION.
--- NOTE | 2019-11-11 15:43 | NUR ---
Patient appeared to be resting in bed. Call light is in reach.
--- NOTE | 2019-11-11 16:00 | NUR ---
SLEEPING WILL HOLD ON ASSESSMENT TIL 1700 WHEN MEDICATIONS TO BE GIVEN. NO DISTRESS NOTED.
--- NOTE | 2019-11-11 18:11 | NUR ---
Per family is somewhat better today, cont. very ill. Sleeping and not awakened.
--- NOTE | 2019-11-11 19:15 | NUR ---
report to next shift. PATIENT IS RESTFUL. HOB ELEVATED. NO CHANGES.
--- NOTE | 2019-11-11 19:59 | NUR ---
RESTING IN BED, HAS NO C/O. GIVEN WARM BLANKET
--- NOTE | 2019-11-11 20:40 | NUR ---
IN TO GIVE MEDS. PT STATES R HEEL IS SORE. HEEL IS SLIGHTLY REDDENED. HEAL PROTECTOR PLACED.
--- NOTE | 2019-11-11 23:01 | NUR ---
PT AWAKENED WHEN ABX HUNG. STATES HEEL FEELS BETTER SINCE PROTECTOR PUT ON. HAS UPPER AIRWAY WHEEZING. NO RESP DISRESS. DAUGHTER IN ROOM.
--- NOTE | 2019-11-12 02:15 | NUR ---
AWAKENS EASILY FOR MEDS. NO C/O. UPPER AIRWAY WHEEZES INCREASES WHEN PT AWAKENS. NO RESP DISTRESS.
--- NOTE | 2019-11-12 04:33 | NUR ---
CONT TO SLEEP. OCC DRY COUGH.
--- NOTE | 2019-11-12 06:15 | NUR ---
PT CONT TO SLEEP. NO CHANGE.
--- NOTE | 2019-11-12 07:30 | NUR ---
REPORT RECIEVED. PATIENT IS AWAKE, SITTING UP IN BED WATCHING TV. BREAKFAST ORDERED.
--- NOTE | 2019-11-12 08:00 | NUR ---
ASSESSMENT DONE. UPPER AIRWAY WHEEZES NOTED. VOICE IS STRONGER TODAY. TALKED WITH PATIENT ABOUT POC FOR DAY, IS UNDERSTANDING. IV ABX IS INFUSING.DAUGHTER IS IN ROOM.
--- NOTE | 2019-11-12 10:00 | NUR ---
TO XRAY VIA CHAIR FOR SWALLOW EVAL. PATIENT WILL BE TRANFERRED TO [facility] TODAY.
--- NOTE | 2019-11-12 10:30 | NUR ---
RETURN TO ROOM 128. ROUTINE MEDICATIONS GIVEN.
--- NOTE | 2019-11-12 13:45 | NUR ---
REPORT TO [facility].
--- NOTE | 2019-11-12 13:59 | NUR ---
REPORT RECEIVED FROM JANINE CASTELAN
--- NOTE | 2019-11-12 14:00 | NUR ---
TO [facility] VIA BED.
--- NOTE | 2019-11-12 14:20 | NUR ---
PT ARRIVED TO ROOM 108 AT 1415. BARBARA, DESKTOP SUPPORT SPECIALIST IN [facility] PT IN. PT ALERT AND ORIENTED TO PERSON AND PLACE. PT ORIENTED TO ROOM AND CALL LIGHT, FRESH H2O ALSO PROVIDED. ASSESSMENT COMPLETED. VSS. NO NEED OR CONCERNS VOICED. FAMILY AT BEDSIDE.
--- NOTE | 2019-11-12 14:29 | NUR ---
PT ARRIVED ALERT AND ORIENTED. DAUGHTER AT BEDSIDE.
--- NOTE | 2019-11-12 17:56 | NUR ---
PT SITTING UP IN BED EATING DINNER. PM MEDS ADMINISTERED. PT DENIES NEEDS OR CONCERNS. CALL LIGHT AND H2O IN REACH.
--- NOTE | 2019-11-12 19:05 | NUR ---
IN ROOM FOR REPORT, PT IS AWAKE IN BED. SHE DENIES NEEDS AT THIS TIME. CALL LIGHT IS WITHIN REACH.
--- NOTE | 2019-11-12 20:51 | NUR ---
GOT BLANKETS AND PILLOWS FOR PT'S DAUGHTER. FRESH WATER FOR PT. BEDSIDE TABLE AND CALL LIGHT IN REACH.
--- NOTE | 2019-11-12 21:15 | NUR ---
VITALS AND I&OS DONE AND CHARTED. WARM BLANKET GIVEN PER PT REQUEST. BEDSIDE TABLE AND CALL LIGHT IN REACH.
--- NOTE | 2019-11-12 21:30 | NUR ---
IN ROOM TO ASSESS PT AND ADMINISTER MEDICATION. PT'S DAUGHTER IS IN THE ROOM AT THIS TIME. PT DENIES PAIN/NAUSEA. SHE HAS A MOIST COUGH BUT STATES SHE ISN'T GETTING MUCH UP. REMINDED HER TO US IS AND ACAPELLA. SHE SAYS SHE WILL BUT WANTS TO GO TO SLEEP. PT DENIES FURTHER NEEDS AT THIS TIME AND CALL LIGHT IS CLOSE.
--- NOTE | 2019-11-13 00:47 | NUR ---
PT IS RESTING WITH EYES CLOSED, RR IS EVEN AND NONLABORED. CALL LIGHT IS CLOSE.
--- NOTE | 2019-11-13 02:03 | NUR ---
PT IS RESTING WITH EYES CLOSED RR IS EVEN AND NONLABORED ON 2LNC. IV ABX ALMOST COMPLETE. CALL LIGHT IS CLOSE.
--- NOTE | 2019-11-13 04:03 | NUR ---
PT IS RESTING WITH EYES CLOSED, RR ARE EVEN AND NONLABORED. CALL LIGHT IS WITHIN REACH.
--- NOTE | 2019-11-13 06:19 | NUR ---
PT DENIES PAIN AT THIS TIME. IV ABX ARE INFUSING. SHE CONTINUES TO HAVE A MOIST COUGH BUT STATES IT IS NOT PRODUCTIVE. SHE FELL BACK ASLEEP AT THIS TIME. CALL LIGHT IS CLOSE AND DAUGHTER IS IN THE ROOM.
--- NOTE | 2019-11-13 06:19 | NUR ---
VITALS AND I&OS DONE AND CHARTED. BEDSIDE TABLE AND CALL LIGHT IN REACH. GARBAGES EMPTIED. FRESH ICE WATER GIVEN.
--- NOTE | 2019-11-13 07:08 | NUR ---
PT RESTING SUPINE IN BED, EYES CLOSED AND RESPIRATIONS EVEN AND UNLABORED. PT APPEARS TO BE SLEEPING COMFORTABLY. CALL LIGHT AND H2O IN REACH. REPORT RECEIVED FROM JANINE KNOWLES.
--- NOTE | 2019-11-13 08:33 | NUR ---
PT ALERT AND ORIENTED, RESTING IN SEMIFOWLERS POSITION IN BED. PT WAS INCONTINANT OF LARGE AMOUNT OF LOOSE STOOL. PT ASSISTED WITH CLEANING UP AND UP TO SHOWER WITH 2PA AND FWW. PT TOLERATED PIVOTING TO SHOWER CHAIR WELL AND IS NOW UP TO CHAIR. AM ASSESSMENT COMPLETED AND AM MEDS ADMINISTERED. CALL LIGHT AND H2O IN REACH. NO NEEDS OR CONCERNS VOICED.
--- NOTE | 2019-11-13 12:33 | NUR ---
PT SITTING UP IN CHAIR EATING LUNCH. PT ALERT AND ORIENTED. CALL LIGHT AND H2O IN REACH. PT AGREES TO USE CALL LIGHT WHEN FINISHED WITH LUNCH SO THAT RIGGS CATH CAN BE DISCONTINUED. NO OTHER NEEDS OR CONCERNS VOICED.
--- NOTE | 2019-11-13 12:37 | NUR ---
ATTEMPTED ST VISIT; PT WAS FATIGUED FROM SESSION WITH PT PER DAUGHTER'S REPORT. EXTENSIVE EDUCATION PROVIDED TO DAUGHTER RE: RESULTS FROM MBS YESTERDAY AND USE OF CHIN TUCK STRATEGY TO INCREASE PT'S SAFETY AND REDUCE RISK OF ASPIRATION.
--- NOTE | 2019-11-13 13:50 | NUR ---
PT SITTING UP IN CHAIR EAING LUNCH AND WITH TV ON. PT IS ALERT AND ORIENTED, SEEMS TO BE USING HER UTENSIL SLOW AND DELIBERATE. PT DID MENTION THAT SHE REMEMBERS ME FROM PREVIOUS VISIT. SHE ALSO SAID SHE IS PLEASED WITH TOOL ENGINE LATHE SET UP OPERATOR. GAVE BLESSING, WILL FOLLOW NEEDED
--- NOTE | 2019-11-13 14:02 | NUR ---
Spoke with pt's daughter Brianna. Pt is walking in [place] with PT. Daughter is unsure of what they will do on dc. Let her know we discussed TC bed in 0830 meeting this am. She feels this would be a good idea. She is also concerned about mom frequent aspiration and is aware pt will have pneumonia again. Daughter states pt was upset with her when she was in the ICU and telling her she was done. I suggested with get together and speak with Doris and ask her what she would like to happen next time she has pnuemonia.
--- NOTE | 2019-11-13 17:22 | NUR ---
PT ASSISTED UP TO CHAIR FOR DINNER WITH 2PA AND FWW. PT NOW EATING DINNER. PM MED ADMINISTERED -SEE EMAR. CALL LIGHT AND H2O IN REACH. PT DENIES PAIN, SOB OR NAUSEA. NO FURTHER NEEDS OR CONCERNS VOICED.
--- NOTE | 2019-11-13 18:45 | NUR ---
PT APPEARED TO HAVE HAD DECREASED SYMPTOMS AND TOLERATED MORE ACTIVITY TODAY. PT REQEUIRES 2PA TO PIVOT TO CHAIR OR COMMODE. PT DID HAVE A LARGE INCONTINANT STOOL THIS MORNING AND WAS ASSISTED SHOWERING BY CHAPIS LOW. PT HAS DENIES ANY SOB THIS SHIFT ON 2LPNC. PT CALLS APPROPRIATLEY AND IS TOLERATING HER DIET. NECTAR THICKENED LIQUIDS, ENCOURAGE PO INTAKE. RIGGS DCD TODAY PT VQS.
--- NOTE | 2019-11-13 20:06 | NUR ---
Incontinent of liquid bm abd urine. very red mary area, under pannus and axillary area, barrier cream applied. Cooperative with assessment. On O2 2LNC lungs with exp wheezing t/o. moist cough present. Call light and fluids at bedside.
--- NOTE | 2019-11-13 22:27 | NUR ---
Awakes easily. no c/o pain. Up to BSC, incontinent of urine and bowel. Had more liquid yellow bm when uo to bsc. red mary area, barrier lotion applied. coop. clean attends in place. 2PA and FWW. Repositioned in bed
--- NOTE | 2019-11-14 01:22 | NUR ---
O2 2L NC, RESTING, EYES CLOSED, NO RESP DISTRESS. ABX INFUSING. CALL LIGHT AT HANDS REACH. MILD THICK FLUIDS AT BEDSIDE, HIGH RISK AND ASPIRATION PRECAUTIONS IN PLACE
--- NOTE | 2019-11-14 03:38 | NUR ---
O2 2LNC, exp wheezing t/o present. up to bsc. voided dark yellow urine, was also incontinent of yellow semi liquid bm, skin cared done, barrier cream applied, clean attends in place. Back to bed. 2PA. Tolerated fair, slight sob with exertion present. C/o r below wlbow to mid arm discomfort. Medicated with aspercream at her requests. Repositioned in bed. R arm elevated in pillows, Tolerating sips of medium thick liquids. hob elevated, aspiration and fall precautions in place. bed alarm on. call light at hands reach. family rooming in.
--- NOTE | 2019-11-14 06:09 | NUR ---
Pt has slept this shift. O2 LNC IN PLACE, EXP WHEEZING AUSCULTATED BILAT, SLIGHT SOB NOTED WITH EXERTION ON RETURN TO BED FROM BSC. HAS HAD MULTIPLE SEMILIQUID BM, SKIN CARE DONE, BARRIER CREAM APPLIED, PERIAREA VERY IRRITATED, ATTENDS IN PLACE. INCONTINENT AND WHEN UP TO BSC. REDNESS PRESENT UNDER AXILLARY, PANNUS AND LESS UNDER BREAST AREAS. BARRIER CREAM APPLIED, DR AUGUSTIN NOTIFIED AND NEW ORDER RECEIVED FOR NYASTATIT CREAM. SL PATENT. NO C/O ADVERSE REACTION TO IV ABX. TOLERATING MEDIUM THICK FLUIDS, ASPIRATION AND RISK PRECAUTIONS IN PLACE. IS AT BEDSIDE. CALL LIGHT AT HANDS REACH, HEEL PROTECTORS IN PLACE, PT ALERT AND ORIENTED. FAMILY AT BEDSIDE.
--- NOTE | 2019-11-14 07:34 | NUR ---
RECIEVED REPORT FROM JANINE CRAIG. PT IS SLEEPING AND ASKED NOT TO BE DISTURBED. BLOOD CULTURES HAVE BEEN NEGATIVE. VERY RAW PERIAREA. SILENT ASPERATION WITH THIN LIQUIDS. DOES NOT ASPERATE ON MODERATE THICK LIQUIDS.
--- NOTE | 2019-11-14 10:27 | NUR ---
SPOKE WITH PATIENT AND DAUGHTER IN ROOM. PATIENT UP IN CHAIR. STATES SHE DIDN'T ENJOY BREAKFAST. ENCOURAGED HER TO ORDER SOMETHING ELSE IF SHE WANTS, SHE DECLINES. SHE HAS NOT DONE THERAPY TODAY. SAYS THERAPY YESTERDAY WAS FINE BUT SHE WAS "SO TIRED". EXPLAINED WE EXPECT HER TO BE TIRED, TO JUST KEEP DOING WHAT SHE CAN TO MOVE WHEN THEY WORK WITH HER. SHE STATES SHE WILL. PATIENT DENIES NEEDING ANYTHING. IS PLEASANT BUT WEAK. DAUGHTER THINKS SHE IS DOING BETTER TODAY. NO QUESTIONS AT THIS TIME.
== END 2019-11-14 10:25 | disposition swing bed (61) | DRG 177 ==
LOC: ED 19:15 → MS 19:17 → CCU 11-09 10:15 → MS 11-12 14:15
PROVIDERS: ADMIT Internal Medicine
PROC: 5A09357 Assistance with Respiratory Ventilation, Less than 24 Consecutive Hours, Continuous Positive Airway Pressure (ICD-10-PCS; principal; 2019-11-10)
DX: J69.0 Pneumonitis due to inhalation of food and vomit (principal); J96.01 Acute respiratory failure with hypoxia; I50.33 Acute on chronic diastolic (congestive) heart failure; I48.20 Chronic atrial fibrillation, unspecified; E03.9 Hypothyroidism, unspecified; D45 Polycythemia vera; R13.12 Dysphagia, oropharyngeal phase; Z66 Do not resuscitate; Z86.73 Personal history of transient ischemic attack (TIA), and cerebral infarction without residual deficits; Z88.8 Allergy status to other drugs, medicaments and biological substances; Z88.1 Allergy status to other antibiotic agents; Z79.899 Other long term (current) drug therapy; Z79.01 Long term (current) use of anticoagulants
CPT/HCPCS: 36415; 36600; 70450; 71045; 74230; 80048; 80053; 81001; 82803; 83735; 83880; 85025; 85610; 85730; 87040; 87070; 87205; 87502; 92610; 92611; 93005; 93010; 94640; 94660; 94667; 94668; 94760; 96374; 96375; 97116; 97162; 97165; 99285-25; J0295; J0456; J1940; J2405; J2543; J2930; J3475; J7060; J7121

== ENCOUNTER 2019-11-14 10:30 | Inpatient (IN) | payer MEDICARE, OTHER ==
[~2019-11-14] VITALS: Ht 167.6 cm; Wt 73.3 kg
[~2019-11-14 10:30] MED LIST changes: +VITAMIN D50000 UNI1 PO
--- NOTE | 2019-11-14 11:45 | NUR ---
PT READMITTED TO TRANSITIONAL CARE. PT IS RESTING IN CHAIR. AUDIBLE WHEEZING HEARD IN UPPER AIRWAY/THROAT. ENCOURAGED PT TO USE IS AND ACCUPELLA THAT SHE HAS AT BEDSIDE. PT CAN USE INDEPENDENTLY. DAUGHTER AT BEDSIDE, ANSWERED MOST OF THE ADMISSION QUESTIONS. TANISHA, PT'S DAUGHTER, IS UNSURE WHERE PT WILL GO WHEN DISCHARGED. SHE IS NOT RETURNING TO THE ASSISTED LIVING FACILITY. ENCOURAGEING PT TO DRINK PO LIQUIDS.
--- NOTE | 2019-11-14 19:05 | NUR ---
PT IN BED RESTING WITH FAMILY AT BEDSIDE. RESPONDS APPROPRIATELY. NO C/O PAIN, DISCOMFORT, NAUSEA. NO REQUEST AT THIS TIME. BEDSIDE REPORT. PT PARTICIPATED.
--- NOTE | 2019-11-14 20:58 | NUR ---
PT AO X 3. LUNG SOUNDS RATTLES, WITH DIMINSHED BASES. FARHAD AREA VERY DOUGLAS AND INFLAMMAED, DESITIN CREAM ON AREA FOR RELIEVE. PT REPORTED LEFT FOOT SORENESS DUE TO SOCK, MASSAGED FOOT WITH LOTION AND REMOVED SOCK. PT HAD LARGE INCONTININET BM
--- NOTE | 2019-11-14 21:10 | NUR ---
PT USES CALL LIGHT FOR COMODE. ASSITED UP AND BACK TO BED 1P. CLEANED FARHAD AREA. A&D OINTMENT PLACED FOR PT COMFORT AND RELIEVE FROM "SORENESS". CALL LIGHT IN REACH, PT IN BED RESTING WITH EYES CLSOED. IV CONNETED AND RUNNING
--- NOTE | 2019-11-14 22:02 | NUR ---
Charge nurse note: resting, O2 2LNC, On Transitional bed status, continues on Aspiration precautions, med thick liquids. Eyes closed, no resp distress. Call light at hands reach
--- NOTE | 2019-11-14 22:50 | NUR ---
UP TO BSC, VOIDED QS CLEAR YELLOW URINE, WAS INCONTINENT OF LIQUID BM. BARRIER CREAM APPLIED, RES FARHAD AREA NOTED, BUT MUCH IMPROVED FROM YESTERDAY. 2PA, O22L, SLIGHT SOB WITH EXERTION NOTED, DENIES C/O PAIN. TOLERAING THICK LIQUIDS AT BEDSIDE. CALL LIGHT AT HANDS REACH,
--- NOTE | 2019-11-15 01:02 | NUR ---
PT RESTING IN BED WITH FAMILY AT BEDSIDE. SO SIGNS OF DISTRESS. RR=16. IV RUNNING. CALL LIGHT IN REACH.
--- NOTE | 2019-11-15 06:10 | NUR ---
pt up to bsc, voided, and had a small liquid bm. barrier cream to mary area. back to bed, O2 2LNC in place. .
--- NOTE | 2019-11-15 06:31 | NUR ---
PT RESTED WELL MOST OF THE NIGHT UP X2 TO COMODE, CALL APROPRIATELY. DAUGHTER AT BEDSIDE
--- NOTE | 2019-11-15 07:08 | NUR ---
RECIEVED BEDSIDE REPORT FROM TRICIA Justice RN. PT IS SLEEPING SOUNDLY. BREATHING EVEN, QUIET, 2L NC IN PLACE. PT UP TO BATHROOM SEVERAL TIMES OVERNIGHT. BM X1.
--- NOTE | 2019-11-15 11:07 | NUR ---
FAMILY HAS LEFT THE ROOM. HER DAUGHTER TANISHA, MENTIONED THAT AFTER SPEAKING WITH HER SISTERS, THEY FEEL IT IS "JUST FINE IF MOM DOES NOT WANT TO DO THERAPY. SHE'S DONE SO MUCH IN THE LAST TWO MONTHS." TIE CUTTER REMINDED HER OF THE GOALS AND EXPECTATIONS OF THE TRANSITIONAL CARE PROGRAM.
--- NOTE | 2019-11-15 18:06 | NUR ---
IV SITE ROTATED. IV STARTED BY RN ON FIRST ATTEMPT. HAND HYGINE AND CHLORAPREP COMPLETE. PT TOLETATED WELL. IV REMOVED, CATH INTACT.
--- NOTE | 2019-11-15 19:00 | NUR ---
RECIEVED REPORT AT BED SIDE. PT UP IN CHAIR ALL DAY DOING WELL. LUNG SOUNDS IMPROVED. PT HAS FAMILY AT BEDSIDE AND NOT REQUESTS AT THIS TIME
--- NOTE | 2019-11-15 19:16 | NUR ---
PATIENT UP TO BATHROOM, THEN TO SHOWER CHAIR, THEN BACK TO BED, 1PA FWW. SHOWER GIVEN TO PATIENT. LOTS OF FARHAD CARE DONE. NEW ATTENDS. NEW GOWN. FARHAD AREA, BOTTOM, AND UNDERARMS ARE VERY RED, RN NOTIFIED. NYSTATIN CREAM PUT ON UNDERARMS. SWEEN CREAM PUT ON BOTTOM AND FARHAD AREA. DAUGHTER IN ROOM. FRESH THICKEND WATER GIVEN. CALL LIGHT IN REACH. NO FURTHER NEEDS AT THIS TIME.
--- NOTE | 2019-11-15 20:19 | NUR ---
PATIENT UP TO THE RESTROOM, 1PA STAND BY W/4WW BACK TO THE BED PATIENT RESTING. CALL LIGHT IN REACH AND FRESH WATER.
--- NOTE | 2019-11-15 21:40 | NUR ---
pt REPORTED 6/10 PAIN IN RIGHT ARM. PAIN MEDICATION GIVEN (SEE MAR). NO FURTHER REQUESTS AT THIS TIME. CALL LIGHT WITHIN REACH.
--- NOTE | 2019-11-15 21:58 | NUR ---
ASSITED PT UP TO BATHROOM. PT ABLE TO AMBULATE WO RESTROOM WITH FWW AND SUPERVISION. PT ABLE TO CLEAN SELF WITH APPROPRIATE WIPES TO MAINTAIN SKIN HEALING.
--- NOTE | 2019-11-16 00:16 | NUR ---
PT RESTING WELL WITH EYES CLOSED IN BED. DAUGHTER AT BED SIDE. CALL LIGHT IN REACH. NO REQUEST AT THIS TIME
--- NOTE | 2019-11-16 00:31 | NUR ---
IV ABX INFUSION COMPLETE. SL
--- NOTE | 2019-11-16 01:35 | NUR ---
ABX INFUSION COMPLETE. SL. CALL LIGHT IN REACH
--- NOTE | 2019-11-16 03:53 | NUR ---
up to br, was incontinentn of urine and had liquid bm. also voided in hat. Decreased redness to mary area noted, barrier cream used. clean attends. Back to bed, 1PA/FWW, tolerated fair, sob with exertention noted. O2 2LNC in place. call light at bedside
--- NOTE | 2019-11-16 06:27 | NUR ---
PATIENT IS RESTING , FRESH WATER AND CALL LIGHT IN REACH
--- NOTE | 2019-11-16 07:09 | NUR ---
RECIEVED BEDSIDE REPORT FROM TRICIA Salinas RN. PT IS AWAKE AND ALERT IN BED, STATES SHE IS COLD. WARM BLANKET GIVEN AND PT COVERED UP. SHE STATES THAT IS "SO MUCH BETTER". ACTIVITY IS BETTER, WALKING INTO THE BATHROOM WITH FWW. NO AUDIBLE WHEEZING. PT RESTING COMFORTABLY IN BED WITH HER DAUGHTER AT BEDSIDE.
--- NOTE | 2019-11-16 08:20 | NUR ---
PATIENT UP TO CHAIR FOR BREAKFAST, 1PA FWW. DAUGHTER IN ROOM. CALL LIGHT IN REACH. NO FURTHER NEEDS AT THIS TIME.
--- NOTE | 2019-11-16 08:50 | NUR ---
DAUGHTER AND PT ARE UPSET ABOUT THE KITCHEN NOT BRINGING UP PT'S ENTIRE ORDER, SHE CHANGED HER ORDER AFTER ORDERING LAST NIGHT. RN DID SERVICE RECOVERY AND PERSONALLY BROUGHT IN THE MISSING ITEMS. EXPLAINED THAT THE KITCHEN HAS LIMITED NUMBER OF BUILT UP UTENSILS AND THAT IS WHY THE UTENSILS ARE NORMAL AT THIS TIME. THE KITCHEN IS WORKING ON GETTING MORE. PT AND HER DAUGHTER APPER TO BE HAPPIER AT THIS TIME.
--- NOTE | 2019-11-16 09:47 | NUR ---
PT HAD LOOSE BM IN CHAIR. SHE STATES IT IS WHEN SHE COUGHS. PT AMBULTATED INTO THE BATHROOM, VOIDED 200ML. RN CLEANED HER UP, CHANGED HER ATTENDS, AND RETURNED TO THE CHAIR. PT IS CONCERNED ABOUT THE ABX. RN ASSURED HER LOOSE STOOLS ARE VERY COMMON AND EXPECTED WHILE ON ANTIBIOTICS. PT WAS REASSURED. DAUGHTER IS VERY ATTENTIVE AT BEDSIDE.
--- NOTE | 2019-11-16 10:18 | NUR ---
PT REFUSED PHYSICAL THERAPY. WILL REAPPROCH LATER.
--- NOTE | 2019-11-16 11:14 | NUR ---
PT AGREED TO WORK WITH PHYSICAL THERAPY IF SHE HAD A ROBE TO COVER HER. RN AND THERAPIST GOT ROBE AND RN FOLLOWED WITH WHEELCHAIR. PT WALKED ON "SMALL LOOP" AROUND BOTH NURSES STATIONS AND BACK TO HER ROOM. SHE TOOK 2 REST BREAKS. MAINTAINED O2 SATS BETWEEN 95-97% ON 2L WHILE AMBULATING. HEART RATE OF 65-71 DURING REST BREAKS. PT ABLE TO CONVERSE WHILE WALKING. AFTER WALKING, PT WENT INTO CHAIR WITH FEET UP. TRIALING 0.5L O2, PT IS TOLERATING WELL. BARRIER CREAM WIPES, A & D CREAM APPLIED AFTER TOILETING.
--- NOTE | 2019-11-16 11:34 | NUR ---
PATIENT HAD INCONT. BM. PATIENT UP TO BATHROOM, 1PA FWW. FARHAD CARE DONE. NEW ATTENDS IN PLACE. NEW GOWN PROVIDED. A+D CREAM APPLIED TO FARHAD AREA AND BOTTOM AFTER CLEANED. UNDERARMS CLEANED AND NYSTATIN CREAM APPLIED TO UNDERARMS. WARM BLANKET GIVEN. CALL LIGHT IN REACH. NO FURTHER NEEDS AT THIS TIME.
--- NOTE | 2019-11-16 16:51 | NUR ---
PATIENT UP TO BATHROOM AND THEN TO CHAIR, 1PA FWW. FARHAD CARE DONE AND A+D CREAM APPLIED. CALL LIGHT IN REACH. NO FURTHER NEEDS AT THIS TIME.
--- NOTE | 2019-11-16 18:02 | NUR ---
PATIENT SITTING UP IN CHAIR TALKING WITH DAUGHTER IN ROOM. CALL LIGHT IN REACH. NO FURTHER NEEDS AT THIS TIME.
--- NOTE | 2019-11-16 20:16 | NUR ---
in chair, O2 0.5L NC, moist productive cough of cream/clear phlegm noted. lungs coarse with exp wheezing present. Coop with assessment. tolerating liquids well, aware of chin tuck motion when drinking liquids. Visiting in room with daugther. no c/o pain
--- NOTE | 2019-11-16 21:30 | NUR ---
[employer]ODU[employer] MAKER ROUNDING NOTE. PT RESTING IN HER RECLINER. PTS DAUGHTER STATES THAT PT IS READY FOR THE BATHROOM AND BED. PT ASSISTED TO BATHROOM AND TO BED WITH 1 PA AND FWW. PT TOELRATED WELL. THICKENED ICE WATER REFILLED. WARM BLANKET PROVIDED. PT'S DAUGHTER PROVIDED WITH PILLOW CASE PER REQUEST. FURTHER NEEDS, QUESTIONS, OR CONCERNS DENIED AT THIS TIME. CALL LIGHT IN REACH.
--- NOTE | 2019-11-16 22:03 | NUR ---
pt and daugther declined to have a PRN neb tx earlier.
--- NOTE | 2019-11-16 22:30 | NUR ---
IN BED, DECLINED CAUGH SYRUP AND TESSALON PERLES AT THIS TIME, CONTINUES TO HAVE MOIST PRODUCTIVE COUGH. IN BED, CALL LIGHT AT BEDSIDE, CONTINUES TO TOLERATED THICKENED LIQUIDS AND THIN LIQUID WITH CHIN TUCK PROCEDURE. FAMILY AT BEDSIDE
--- NOTE | 2019-11-17 02:33 | NUR ---
RESATING, EYES CLOSED, O2 IN PLACE, NO RESP DISTRESS. CALL LIGHT AT HANDS REACH, THICKENED LIQUIDS AT BEDSIDE. FAMILY ROOMING IN
--- NOTE | 2019-11-17 04:36 | NUR ---
pt continues on transitional cre status. Has slep all shift. Continues to have moist productive cough of small amount of phlegm, new orders for neb tx, tessalon perles and Cough syrup obtained. Pt declined. O2 in place, lungs sounds with exp wheezing . Continues on aspiration precautions. with thin liquid colton tuck procedure. or med thick liquids. Pt improved gait and effort noted earlier when she walked to br with 1PA and FWW, tolerated fair. call light at bedside, family rooming in
--- NOTE | 2019-11-17 07:03 | NUR ---
RECIEVED BEDSIDE REPORT FROM JANINE CRAIG. PT IS STILL ON 0.5L O2 VIA NC. TOLERATING WELL. OCCISIONAL COUGH. SLEEPING WELL. HIGH RISK OF SLIENT ASPERATION WITH THIN LIQUIDS, ESPECIALLY WHEN SLEEPY OR IN BED. DAUGHTER AT BEDSIDE.
--- NOTE | 2019-11-17 08:01 | NUR ---
AM CARE COMPLETE, PT IS UP TO CHAIR EATING BREAKFAST WITH DAUGHTER AT BEDSIDE. DAUGHTER IS PREVENTING PT FROM DOING THING ON HER OWN AT TIMES. STAFF REMINDS FAMILY AND PT TO ALLOW PT TO DO MUCH FOR HERSELF AND MAKE HER OWN DECISIONS.
--- NOTE | 2019-11-17 09:46 | NUR ---
PT IS VERY DISAGREEABLE WITH CASE MANAGEMENT AND SPEECH THERAPY. SHE DID EVENTUALLY WORK WITH ST, BUT WAS NOT HAPPY ABOUT IT.
--- NOTE | 2019-11-17 09:47 | NUR ---
PATIENT UP WALKING WITH PT.
--- NOTE | 2019-11-17 10:08 | NUR ---
PT IS MUCH MORE AGREEABLE WITH THIS RN. SHE APOLIGIZED FOR HER EARLIER BEHAVIOR. WE TALKED ABOUT HER PROGRESS AND WHAT HER OPTIONS ARE FOR AFTER DISCHARGE.
--- NOTE | 2019-11-17 10:29 | NUR ---
Spoke with Mrs Camara and her daughter Brianna. Pt. upset with Brianna as she moved her belonging from [facility] when she became hospitalized as she did not think she could return. Attempted to discuss with patient what she would like to do. Pt is upset and states she will not work with me. Does not want sent somewhere. Daughter spoke with her and let her know that is not happening. I also brought up the subject, if she wants to continue to have full treatment when she comes in with pneumonia. She states she will think about it. Pt states she is not happy with tucking her chin to eat and she is not wanting to work with PT. She wants to go home to her house, but daughter states she is unable to care for her in her deconditioned state. They agree to discuss further and will let me know if pt wants to continue on TC bed or return to [facility]. Daughter has concerns for [facility] as she felt they did not provide a lot of care when pt was ambulatory. Will touch base with them later today.
--- NOTE | 2019-11-17 13:35 | NUR ---
PT IS RESTING IN THE CHAIR, APPEARS COMFORTABLE. SMILED AT THIS RN WHEN I WALKED IN.
--- NOTE | 2019-11-17 19:05 | NUR ---
BEDSIDE REPORT RECEIVED FROM OFFGOING RNJOANNE. PT RESTING IN BED. DENIES NEEDS AT THIS TIME. CALL LIGHT WITHIN REACH.
--- NOTE | 2019-11-17 20:00 | NUR ---
PT ASSESSMENT COMPLETE. PT UTILIZES CALL LIGHT TO USE THE BATHROOM. PT INCONTINENT OF STOOL IN BED. PT AMBULATES TO THE BATHROOM, BED LINEN CHANGED AND PT CLEANED UP. PT BACK TO BED WITH 1 PA. PT TOLERATED WELL. PT HAS OCCASIONAL PRODUCTIVE COUGH DURING ASSESSMENT WITH SCANT AMOUNT OF THIN CLEAR MUCOUS PRODUCTION. PT DENIES SOB. PT DENIES PAIN OR NAUSEA. ICE WATER REFILLED. PT'S DAUGHTER IN ROOM. NEEDS DENIED. CALL LIGHT IN REACH.
--- NOTE | 2019-11-17 20:30 | NUR ---
ROUNDED CHARGE. PATIENT IS RESTING IN BED. PATIENT DENIES ANY COMMENTS, QUESTIONS OR CONCERNS. NO NEEDS NOTED. CALL LIGHT IN REACH.
--- NOTE | 2019-11-17 21:02 | NUR ---
PATIENT IS RESTING. WATCHING TV. CALL LIGHT IN REACH AND FRESH WATER
--- NOTE | 2019-11-17 23:30 | NUR ---
PT RESTING IN BED WITH EYES CLOSED. RESPIRATIONS EVEN AND UNLABORED. PT APPEARS TO BE SLEEPING. DOES NOT WAKE WHILE BAND CUTTING MACHINE OPERATOR AT DOORWAY. CALL LIGHT IN REACH. PT'S DAUGHTER SLEEPING AT BEDSIDE.
--- NOTE | 2019-11-18 01:07 | NUR ---
PT RESTING IN BED WITH EYES CLOSED. RESPIRATIONS EVEN AND UNLABORED. PT APPEARS TO BE SLEEPING. CALL LIGHT WITHIN REACH. PT'S DAUGHTER SLEEPING ON COUCH.
--- NOTE | 2019-11-18 03:30 | NUR ---
PT RESTING IN BED WITH EYES CLOSED. RESPIRATIONS EVEN AND UNLABORED. DOES NOT WAKE WHILE HAT BLOCKER AT DOORWAY. PT'S DAUGHTER CONTINUES SLEEPING ON COUCH. CALL LIGHT WITHIN REACH.
--- NOTE | 2019-11-18 05:26 | NUR ---
PT SLEPT VERY WELL THIS SHIFT. NO PAIN, NAUSEA, OR SOB. TOLERATED RA THROUGHOUT THE NIGHT. OCCASIONAL COUGH. 1 PA WITH FWW. ATTENDS FOR INCONTINENCE. IV SL. THICKENED LIQ & CHIN TUCK WITH SWALLOW.
--- NOTE | 2019-11-18 06:38 | NUR ---
WRTIER TO ROOM FOR SCHEDULED MED ADMINISTRATION. PT ASSISTED TO THE BATHROOM AND BACK TO BED WITH 1 PA. ATTENDS CHANGED. PT TOLERATED WELL. DENIES FURTHER NEEDS AT THIS TIME. CALL LIGHT IN REACH.
--- NOTE | 2019-11-18 07:12 | NUR ---
REPORT RECIEVED, PT ASLEEP IN BED, CALL LIGHT IN EASY REACH, DAUGHTER ASLEEP ON SLEEPER BED IN ROOM.
--- NOTE | 2019-11-18 08:00 | NUR ---
PT UP TO STRAIGHT BACK CHAIR FOR BREAKFAST, DOING VERY WELL WITH SWALLOW PRECAUTIONS, DAUGHTER ASSISTING PT AND ENCOURAGING HER.
--- NOTE | 2019-11-18 08:55 | NUR ---
PATIENT SITTING IN CHAIR, DAUGHTER IN ROOM. DAUGHTER BRUSHING PATIENTS HAIR AND DOING AM CARE. CALL LIGHT IN REACH. NO FURTHER NEEDS AT THIS TIME.
--- NOTE | 2019-11-18 10:15 | NUR ---
WENT TO TALK WITH PT AND SHE SAID SHE IS NOT HAPPY RIGHT NOW AND DOESN'T WANT TO DEAL WITH ANYONE TODAY. ASKED ME TO LEAVE THE ROOM. WILL TRY AGAIN TOMORROW TO TALK WITH PT REGARDING EDUCATION.
--- NOTE | 2019-11-18 10:42 | NUR ---
Spoke with pt's daughter. She plans on pt. now returning to [facility] living in [place] on DC. Misty PT and I spoke with daughter and updated pt will more than likely be ready for dc by Sunday. Daughter states concerns as pt has daily episodes of diarrhea when she coughs. Daughter is concerned this will continue on discharge, she feels this is due to the antibiotics. Antibiotics ended yesterday. Informed I will discuss with Dr. De La Rosa. Dr. De La Rosa updated and he will discuss with daughter treatment for symptoms.
--- NOTE | 2019-11-18 11:40 | NUR ---
CHECKED WITH PT REGARDING A VISIT FROM FR JOHNSON TODAY. SHE SAID SHE WOULD LIKE TO HAVE HIM COME. NOTIFIED FR JOHNSON
--- NOTE | 2019-11-18 14:44 | NUR ---
PATIENT IN BED RESTING WITH EYES CLOSED. CALL LIGHT IN REACH. NO FURTHER NEEDS AT THIS TIME.
--- NOTE | 2019-11-18 18:07 | NUR ---
PT STATES SHE HAS HAD A GOOD DAY, WISHES TO SIT UP IN RECLINER FOR A BIT AFTER DINNER TO WATCH [place] BY THE PRESIDENT, AMBULATED INTO THE BATHROOM FOR SMALL LOOSE BM, GOOD SKIN CARE GIVEN aND CREAM APPLIED TO RED AREAS, IMPROVING. DENIES FURTHER NEEDS. CALL LIGHT IN EASY REACH.
--- NOTE | 2019-11-18 19:41 | NUR ---
REPORT RECEIVED FROM DAY SHIFT RN. PT SITTING IN RECLINER, ALERT AND ORIENTED WATCHING TV. NO QUESTIONS OR CONCERNS AT THIS TIME. CALL LIGHT IN REACH. WHITE BOARD UPDATED.
--- NOTE | 2019-11-18 20:52 | NUR ---
ROUNDED CHARGE. PATIENTS GROIN AREA IS RED AND EXCORIATED. PATIENTS SCHEDULED CREAM PLACED ON GROIN AREA PER ORDER. PATIENT ASSISTED TO BED A SBA W/FWW. ASPERCREME PLACED ON PATIENTS RIGHT LOWER BACK. PATIENT DENIES ANY COMMENTS, QUESTIONS OR CONCERNS. JACKSON MEHTA REMAINS IN ROOM. DAUGHTER IS PRESENT IN THE ROOM AND DENIES ANY NEEDS. CALL LIGHT IN REACH.
--- NOTE | 2019-11-18 21:30 | NUR ---
EVENING ASSESSMENT COMPLETE. PT LYING IN BED, DENIES PAIN. BLE ELEVATED WITH PILLOWS. WARM BLANKET GIVEN. FRESH WATER GIVEN. DAUGHTER IN ROOM. NO QUESTIONS OR CONCERNS AT THIS TIME. CALL LIGHT IN REACH.
--- NOTE | 2019-11-19 03:09 | NUR ---
PT RESTING IN BED WITH EYES CLOSED, RR EVEN AND UNLABORED. DAUGHTER IN ROOM. CALL LIGHT IN REACH.
--- NOTE | 2019-11-19 06:38 | NUR ---
PT RESTING IN BED. AM MEDS GIVEN WITHOUT DIFFICULTY. NO SWALLOWING ISSUES NOTED. PT FOLLOWS CHIN TUCK SUGGESTION. WARM BLANKET GIVEN. PT DENIES OTHER NEEDS.
--- NOTE | 2019-11-19 06:39 | NUR ---
Pt slept all night. Second CYBER OPERATOR and I Helped pt to the restroom at 0600. Pt was wet, changed pts breif and draw sheet, white pad, and pillow cases that where used under her knees. Bottom is excoriated, cream applied. Positioned patient on right side to take pressure off of her bottom.
--- NOTE | 2019-11-19 08:05 | NUR ---
BEDSIDE REPORT RECEIVED FROM NATALIE MEHTA. WHITE BOARD UPDATED. PATIENT SLEEPING AT TIME OF SHIFT CHANGE. SHE IS UP IN CHAIR EATING BREAKFAST NOW. DEVANTE STRONG PROVIDING MORNING CARES AND CHANGING LINENS. DAUGHTER AT BEDSIDE. NO NEEDS AT THIS TIME.
--- NOTE | 2019-11-19 08:08 | NUR ---
CALL LIGHT ANSWERED. PATIENT RESTING IN BED. PATIENT GOES TO USE THE BATHROOM. ORAL CARE DONE. FACE AND HANDS WASHED. PATIENT BACKS TO CHAIR. WARM BLANKET PROVIDED. DAUGHTER IN ROOM. CALL LIGHT WITHIN REACH. NO OTHER NEEDS AT THIS TIME
--- NOTE | 2019-11-19 09:08 | NUR ---
PATIENT SITTING UP IN CHAIR. DAUGHTER IN ROOM. VITAL SIGNS DONE BY RN. I&O DONE. PATIENT SAYS THAT MAYBE SHE IS GOING TO TAKE A SHOWER TODAY. CALL LIGHT WITHIN REACH. NO OTHER NEEDS AT THIS TIME
--- NOTE | 2019-11-19 11:00 | NUR ---
Spoke with Doris. Asked if she wants to discharge to [facility] in [place]. Pt states she will leave this up to her daughter. Called [facility] to confirm bed. Spoke with Stacy she can return Sunday or whenever she is released by PT. [facility] [phone] fax [phone].
--- NOTE | 2019-11-19 13:22 | NUR ---
PATIENT SITTING UP IN CHAIR. I&O DONE. ICE WATER GIVEN. CALL LIGHT WITHIN REACH. NO OTHER NEEDS AT THIS TIME
--- NOTE | 2019-11-19 17:12 | NUR ---
PATIENT SITTING UP IN CHAIR. I&O DONE. CALL LIGHT WITHIN REACH. NO OTHER NEEDS AT THIS TIME
--- NOTE | 2019-11-19 17:59 | NUR ---
DESITIN STARTED FOR PERINEUM EXCORIATION. STRESS INCONTINENCE WITH COUGHING. BM TODAY. SBA/1PA FWW TO AMBULATE. PT/OT. CHIN TUCK WHEN SWALLOWING THIN LIQUIDS. POOR APPETITE.
--- NOTE | 2019-11-19 19:46 | NUR ---
PATIENT RESTING QUIETLY IN HER CHAIR WATCHING TV. ICE WATER REFILLED, PATIENT HAD NO OTHER NEEDS AT THIS TIME. CALL LIGHT IN REACH.
--- NOTE | 2019-11-19 21:30 | NUR ---
PATIENT IN BED AND READY FOR SLEEP, NYSTATIN AND DESITIN CREAM APPLIED TO BUTTOCKS AND FARHAD-AREA, WITH ASSISTANCE FROM JESSICA LOW. PATIENT'S DAUGHTER SPENDING THE NIGHT ON THE COUCH. PATIENT REQUESTED SOMETHING FOR COUGH AND TESSELON GIOVANY GIVEN. PATIENT GIVEN FRESH WATER, LIGHTS TURNED DOWN, AND CALL LIGHT IN REACH.
--- NOTE | 2019-11-19 21:38 | NUR ---
ROUNDED CHARGE. PATIENT IS RESTING IN BED. PATIENTS DAUGHTER IS RESTING ION THE COUCH. PATIENT AND DAUGHTER DENY ANY COMMENTS, QUESTIONS, OR CONCERNS. NO NEEDS NOTED. CALL LIGHT IN REACH.
--- NOTE | 2019-11-19 23:06 | NUR ---
PATIENT RESTING QUIETLY IN SEMI-FOWLERS POSITION, DAUGHTER ASLEEP ON THE COUCH, PATIENT'S RESPIRATIONS REGULAR AND EVEN, EYES CLOSED, CALL LIGHT IN REACH.
--- NOTE | 2019-11-20 00:51 | NUR ---
pt continues on transitinal bed status, resting, resp even, unlabored, on room air. no distress, call light at hands reach. family in room
--- NOTE | 2019-11-20 02:34 | NUR ---
on room air, resting, no resp distress. call light and fresh water at bedside. family rooming in
--- NOTE | 2019-11-20 04:30 | NUR ---
awake, drinking water using chin tuck technique. no cough at this time, denies c/o pain, went back to sleep, call light at bedside
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
--- NOTE | 2019-11-20 06:42 | NUR ---
PATIENT SLEPT WELL iNCONT 2 X THREW THE NIGHT BED CHANGED X 1. CALL LIGHT IN REACH AND FRESH WATER GIVEN
--- NOTE | 2019-11-20 07:22 | NUR ---
REPORT RECEIVED FROM JANINE CRAIG. PT RESTING WITH EYES CLOSED, RESPIRATIONS EVEN AND UNLABORED. FAMILY AT BEDSIDE. BED RAILS UP. CALL LIGHT WITHIN REACH. PT ALLOWED TO REST.
--- NOTE | 2019-11-20 09:11 | NUR ---
MORNING ASSESSMENT AND MEDICATION DUE. PT UP TO CHAIR FOR BREAKFAST. CARE PLAN MEETING IN PROCESS. CASE MANAGEMENT DISCUSSING WITH PT PLAN OF CARE AND PLAN FOR DISCHRAGE. PT AND DAUGHTER INVOLVED IN DISCUSSION. PT REPORTS SHE IS TUCKING HER CHIN TO DRINK THIN LIQUIDS. PT DECLINES PHYSICAL THERAPY UPON DISCHARGE. VITALS TAKEN. MEDICATIONS GIVEN. ASSESSMENT DONE. WHEEZES NOTED IN UPPER LOBES OF LUNGS, CORNET AND I.S. USE DEMONSTRATED. PT REACHES 1000ML ON I.S. RT CALLED FOR ASSESSMENT AND PRN BREATHING TX. O2 AT 96% ON ROOM AIR. WARM BLANKETS PROVIDED. NO ADDITIONAL REQUESTS OR COMPLAINTS AT THIS TIME. CALL LIGHT WITHIN REACH.
--- NOTE | 2019-11-20 11:00 | NUR ---
SITTING UP IN RECLINER, LUNCH ORDERED, AGREED TO TAKE SHOWER TODAY, SBA OOB USING FWW, GOOD SKIN CARE. DENIES ANY NEEDS.
--- NOTE | 2019-11-20 14:00 | NUR ---
SHOWER TAKEN, GOOD SKIN CARE WITH CREAMES APPLIED, TOLERATED WELL, SITTING UP IN RECLINER. PT TO WORK WITH PT.
--- NOTE | 2019-11-20 19:21 | NUR ---
PATIENT GETTING BACK INTO BED FROM THE BATHROOM WITH TRIPE FINISHER, NO NEEDS AT THIS TIME. PATIENTHAS FAMILY AT BEDSIDE. CALL LIGHT IN REACH.
--- NOTE | 2019-11-20 19:56 | NUR ---
PATIENT WATCHING TV, VISITING WITH HER DAUGHTER, WATER REFILLED, CALL LIGHT IN REACH.
--- NOTE | 2019-11-20 21:30 | NUR ---
PATIENT RESTING QIETLY, EYES CLOSED, FAMILY WENT HOME, CALL LIGHT IN REACH. RESPIRATIONS REGULAR AND EVEN. LIGHTS DOWN AND WATER IN REACH.
--- NOTE | 2019-11-20 23:33 | NUR ---
PATIENT RESTING QUIETLY, IN SEMI-FOWLERS POSITION, EYES CLOSED, RESPIRATIONS REGULAR AND EVEN, CALL LIGHT IN REACH.
--- NOTE | 2019-11-21 01:17 | NUR ---
PATIENT CONTINUES RESTING QUIETLY, EYES CLOSED, RESPIRATIONS REGULAR AND EVEN, CALL LIGHT IN REACH.
--- NOTE | 2019-11-21 01:36 | NUR ---
HELPED PT TO THE BATHROOM AND BACK TO BED. BEDSIDE TABLE AND CALL LIGHT WITHIN REACH.
--- NOTE | 2019-11-21 03:40 | NUR ---
PATIENT UP TO THE BATHROOM WITH LABORER CARPENTRY DOCK'S AND BACK TO BED WITHOUT DIFFICULTY AND HAS NO NEEDS AT THIS TIME. CALL LIGHT IN REACH.
--- NOTE | 2019-11-21 05:59 | NUR ---
PATIENT HAS RESTED WELL MOST OF THE NIGHT EXCEPT FOR WHEN SHE NEEDED TO USE THE RESTROOM. SHOULD GO TO [facility] TODAY. RESTING QUIETLY WITH EYES CLOSED AT THIS TIME. CALL LIGHT IN REACH.
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
--- NOTE | 2019-11-21 09:29 | NUR ---
PATIENT WASHED HER FACE AND BRUSHED HER TEETH. WASHED HER UNDERARMS AND DRIED THEM AND PUT CREAM ON THEM.
--- NOTE | 2019-11-21 10:40 | NUR ---
Received call from pt's daughter. She will be able to take pt to [facility] today for admission. Dr. Dong notified and will complete orders. In and spoke with pt at daughter's request. Pt notified, daughter will pick her up later this afternoon.
[2019-11-21] MEDS ORDERED: TYLENOL EXTRA500 MG PO (10:49)
[2019-11-21] MEDS ORDERED: NYSTATIN15 GM TOP (10:50)
[2019-11-21] MEDS ORDERED: ASPERCREME 1035.4 GM TOP (10:51)
[2019-11-21] MEDS ORDERED: DESITIN57 GM TOP (10:52)
--- NOTE | 2019-11-21 10:56 | NUR ---
ANSWERED PATIENT'S CALL LIGHT. SHE NEEDED HER [place]. AND KLEENEX. PATIENT DID ORDER HER LUNCH. PATIENT IS UP IN HER CHAIR.
--- NOTE | 2019-11-21 11:19 | NUR ---
pt up in chair napping with eyes closed. resp rate even and unlabored.
== END 2019-11-21 15:05 | disposition home or self-care (01) | DRG 947 ==
LOC: MS 10:30
PROVIDERS: ADMIT Internal Medicine
DX: R68.89 Other general symptoms and signs (principal); J96.01 Acute respiratory failure with hypoxia; J69.0 Pneumonitis due to inhalation of food and vomit; I48.20 Chronic atrial fibrillation, unspecified; I50.32 Chronic diastolic (congestive) heart failure; R53.83 Other fatigue; R42 Dizziness and giddiness; R63.0 Anorexia; E03.9 Hypothyroidism, unspecified; D45 Polycythemia vera; R13.12 Dysphagia, oropharyngeal phase; Z66 Do not resuscitate; Z88.8 Allergy status to other drugs, medicaments and biological substances; Z88.1 Allergy status to other antibiotic agents; Z79.899 Other long term (current) drug therapy; Z79.01 Long term (current) use of anticoagulants
CPT/HCPCS: 92526; 92610; 94667; 94668; 94760; 97110; 97116; 97162; 97530; 97535; J2543